=== PATIENT | male | born 1945 | race Caucasian/White ===

== ENCOUNTER 2019-01-12 19:13 | Inpatient (IN) | payer OTHER ==
--- NOTE | 2019-01-12 19:52 | PDOC ---
History of Present Illness - General Chief Complaint: Seizure Stated Complaint: SEIZURE Time Seen by Provider: 01/12/19 19:52 - History of Present Illness Initial Comments: 01/12/19 20:24 74 year old man with a history of DM, HTN, HLD with prior seizures of unkown etiology (not on AED) who presents unwitnessed seizure just prior to arrival. The patient was in the bathroom when his mother heard him in the bathroom crashing into objects. She does not know how long he had the seizure for. She repotrs he had mentioned to her that he was feeling unwell the past day and had some night sweats last night. The patient has had seizures in the past that he was admitted for at [facility]. She does not know the neurologist he was seen with and notes that the patient does not have seizure medications. She states that the etiology of the seizures were not found. Patient is lethargic appearing but arousable with limited contribution to history Mother: home: [phone] / cell: [phone] ROS - limited 2/2 lethargy denies chest pain, shortness of breath, abdominal pain, diarrhea, constipation + dysuria PE GENERAL: Awake and fully oriented, in no acute distress HEAD: No signs of trauma, normocephalic, atraumatic EYES: PERRLA, EOMI, sclera anicteric, conjunctiva clear ENT: oropharynx clear without exudates. Moist mucosa NECK: Normal ROM, supple LUNGS: No distress, speaks full sentences, clear to auscultation bilaterally HEART: Regular rate and rhythm, normal S1 and S2, no murmurs, rubs or gallops, peripheral pulses normal and equal bilaterally. ABDOMEN: Soft, nontender No guarding, no rebound. No masses EXTREMITIES : Normal inspection, Normal range of motion, no edema. No clubbing or cyanosis. NEUROLOGICAL: Cranial nerves II through XII grossly intact. Normal speech. no focal sensorimotor deficits SKIN: Warm, Dry, normal turgor, no rashes or lesions noted MDM DDX including but not limited to: r/o traumatic injury s/p seizure r/o brain mass r/o electrolyte vs tox ED Course: labs largely wnl signed out to resident Dr. Mike Ortega, PGY2 Emergency Medicine Past History - Past Medical History Allergies/Adverse Reactions: Allergies Allergy/AdvReac Type Severity Reaction Status Date / Time No Known Allergies Allergy Unverified 08/24/12 14:45 Home Medications: Ambulatory Orders Atorvastatin Calcium 1 tab PO HS 01/13/19 Cholecalciferol (Vitamin D3) [Vitamin D3] 2,500 unit PO DAILY 01/13/19 Clopidogrel Bisulfate [Clopidogrel] 75 mg PO DAILY 01/13/19 Finasteride 5 mg PO DAILY 01/13/19 Glipizide [Glipizide ER] 5 mg PO DAILY 01/13/19 Metformin HCl [Glucophage] 1,000 mg PO BID 01/13/19 Metoprolol Succinate 50 mg PO DAILY 01/13/19 Tamsulosin HCl 0.4 mg PO HS 01/13/19 Cephalexin [Keflex] 500 mg PO BID #6 capsule 01/16/19 Hydrochlorothiazide [Hctz -] 50 mg PO DAILY 01/16/19 Lisinopril 30 mg PO DAILY 01/16/19 levETIRAcetam [Keppra -] 500 mg PO BID #60 tablet 01/16/19 Diabetes: Yes HTN: Yes - Psycho Social/Smoking Cessation Hx Smoking History: Unknown if ever smoked Have you smoked in the past 12 months: No *Physical Exam - Vital Signs Last Vital Signs Temp Pulse Resp BP Pulse Ox 96.6 F L 92 H 17 127/68 98 01/12/19 19:19 01/12/19 19:19 01/12/19 19:19 01/12/19 19:19 01/12/19 19:19 ED Treatment Course - LABORATORY CBC & Chemistry Diagram: 01/14/19 06:10 01/15/19 05:45 Discharge - Discharge Information Problems reviewed: Yes Clinical Impression/Diagnosis: Loss of consciousness Condition: Improved Disposition: HOME - Follow up/Referral - Patient Discharge Instructions - Post Discharge Activity
--- NOTE | 2019-01-12 20:17 | PDOC ---
Attending Attestation - Resident Resident Name: Ladan Ortega - ED Attending Attestation I have performed the following: I have examined & evaluated the patient, The case was reviewed & discussed with the resident, I agree w/resident's findings & plan, Exceptions are as noted - HPI HPI: 01/12/19 20:17 74M DM, HTN, HLD, BIBEMS s/p unwitnessed seizure. Patient was in the bathroom when mother heard crashing coming from the bathroom. She found him in the bathtub. He has had one similar episode in the past th
[2019-01-12 21:22] LABS: BASO % 0.4 % (0-2.0); EOS % 0.1 % (0-4.5); HEMATOCRIT 41.9 % (35.4-49); HEMOGLOBIN 14.2 GM/dL (11.7-16.9); LYMPH % 3.4 % (8-40); MCH 30.7 pg (25.7-33.7); MCHC 33.8 g/dl (32.0-35.9); MEAN CELL VOLUME 90.9 fl (80-96); MEAN PLT VOLUME 8.5 fl (7.5-11.1); MONO % 2.6 % (3.8-10.2); NEUT % 93.5 % (42.8-82.8); PLATELET COUNT 269 K/MM3 (134-434); RBC 4.61 M/mm3 (4.00-5.60); RDW 13.4 % (11.9-15.9); WHITE BLOOD COUNT 15.9 K/mm3 (4.0-10.0)
[2019-01-12 21:49] LABS: ALBUMIN 3.8 g/dl (3.4-5.0); BILIRUBIN,TOTAL 0.5 mg/dL (0.2-1); BLOOD UREA NITROGEN 22.9 mg/dL (7-18); CALCIUM 9.8 mg/dL (8.5-10.1); CREATININE 1.4 mg/dL (0.55-1.3); TOT PROT 7.4 g/dl (6.4-8.2)
[2019-01-12 22:50] LABS: ANISOCYTOSIS 0; MACROCYTOSIS 0; PLATELET ESTIMATE NORMAL
--- NOTE | 2019-01-12 23:55 | PDOC ---
*Physical Exam - Vital Signs Last Vital Signs Temp Pulse Resp BP Pulse Ox 96.6 F L 76 14 134/67 95 01/12/19 19:19 01/12/19 20:44 01/12/19 20:44 01/12/19 20:44 01/12/19 20:44 ED Treatment Course - LABORATORY CBC & Chemistry Diagram: 01/14/19 06:10 01/14/19 06:10 - ADDITIONAL ORDERS Additional order review: Laboratory Results 01/12/19 01/12/19 01/12/19 21:00 21:00 21:00 Sodium 138 Potassium 4.0 Chloride 101 Carbon Dioxide 26 Anion Gap 11 BUN 22.9 H Creatinine 1.4 H Est GFR (CKD-EPI)AfAm 56.96 Est GFR (CKD-EPI)NonAf 49.14 POC Glucometer Random Glucose 156 H Lactic Acid 6.1 H* Calcium 9.8 Total Bilirubin 0.5 AST 13 L ALT 20 Alkaline Phosphatase 91 Troponin I < 0.02 Total Protein 7.4 Albumin 3.8 01/12/19 19:54 Sodium Potassium Chloride Carbon Dioxide Anion Gap BUN Creatinine Est GFR (CKD-EPI)AfAm Est GFR (CKD-EPI)NonAf POC Glucometer 180 Random Glucose Lactic Acid Calcium Total Bilirubin AST ALT Alkaline Phosphatase Troponin I Total Protein Albumin 01/12/19 01/12/19 21:00 19:54 RBC 4.61 MCV 90.9 MCHC 33.8 RDW 13.4 MPV 8.5 Neutrophils % 93.5 H Lymphocytes % 3.4 L Monocytes % 2.6 L Eosinophils % 0.1 Basophils % 0.4 POC Glucometer 180 Medical Decision Making - Medical Decision Making 01/12/19 23:54 rcvd sign out from noon team - UA - CT head results - admit 01/13/19 01:33 CT Head, Face, and Neck w/o acute pathology - UA sent Admitted to Telemetry Discharge - Discharge Information Problems reviewed: Yes Clinical Impression/Diagnosis: Loss of consciousness Condition: Fair - Admission Yes - Follow up/Referral - Patient Discharge Instructions - Post Discharge Activity
[2019-01-13] MEDS ORDERED: ACETAMINOPHEN 1000 MG/100 ML VIAL (NON FORMULARY) IVPB ONE (01:48)
[2019-01-13 01:50] LABS: EPI CELLS 8.9 /HPF (0-5/HPF); HYALINE CASTS 13 /lpf (0-8); URINE APPEARANCE CLEAR; URINE BACTERIA 2.9 /hpf (NEGATIVE); URINE BILIRUBIN NEGATIVE (NEGATIVE); URINE COLOR YELLOW; URINE GLUCOSE (UA) NEGATIVE (NEGATIVE); URINE KETONE TRACE (NEGATIVE); URINE LEUK ESTERASE 2+ (NEGATIVE); URINE NITRITE NEGATIVE (NEGATIVE); URINE PROTEIN 2+ (NEGATIVE); URINE RBC 3 /hpf (0-4); URINE UROBILINOGEN 0.2 mg/dL (0.2-1.0); URINE WBC 69 /hpf (0-5)
[2019-01-13] MEDS ORDERED: SODIUM CHLORIDE 0.9% 500 ML INFUS.BAG IV ONE (01:53)
[2019-01-13] MEDS ORDERED: CEFTRIAXONE 1,000 MG in DEXTROSE 5%-WATER - 50 ML IVPB ONE (01:54)
[2019-01-13] MEDS ORDERED: CEFTRIAXONE 1 GM/50 ML BAG ONE (02:07)
[2019-01-13] MEDS ORDERED: ACETAMINOPHEN INJECTION 100 ML IVPB ONE (02:07)
[2019-01-13 02:11] LABS: COCAINE, UR NEGATIVE ng/ml (CUTOFF=300); METHADONE, UR NEGATIVE ng/ml (CUTOFF=300); OPIATES, URI NEGATIVE ng/ml (CUTOFF=300); PHENCYCLIDINE,URINE NEGATIVE ng/ml (CUTOFF=25); URINE AMPHETAMINES NEGATIVE ng/ml (CUTOFF=500); URINE BARBITURATES NEGATIVE ng/ml (CUTOFF=200); URINE BENZODIAZEPINES NEGATIVE ng/ml (CUTOFF=200)
--- NOTE | 2019-01-13 04:19 | PN ---
Teaching Attending Note Name of Resident: Mae Ontiveros ATTENDING PHYSICIAN STATEMENT I saw and evaluated the patient. I reviewed the resident's note and discussed the case with the resident. I agree with the resident's findings and plan as documented. SUBJECTIVE: 74-year-old man with diabetes hypertension and dyslipidemia and with reported seizure history not taking any AEDs presented with an unwitnessed seizure just prior to arrival. Patient was in the bathroom when his mother heard him in the bathroom crashing into objects in the past admitted to [facility] for seizure disorder does not remember the name of neurologist he saw in the past. In the emergency department C-spine CT, head CT, facial bone CT were ordered. OBJECTIVE: Last Vital Signs Temp Pulse Resp BP Pulse Ox 96.6 F L 76 14 134/67 95 01/12/19 19:19 01/12/19 20:44 01/12/19 20:44 01/12/19 20:44 01/12/19 20:44 GENERAL: Well developed, well nourished. Awake and alert. No acute distress. HEENT: Normocephalic, atraumatic. PERRLA, EOMI. No conjunctival pallor. Sclera are non- icteric. Moist mucous membranes. Oropharynx is clear. NECK: Supple. Full ROM. No JVD. Carotid pulses 2+ and symmetric, without bruits. No thyromegaly. No lymphadenopathy. CARDIOVASCULAR: Regular rate and rhythm. No murmurs, rubs, or gallops. Distal pulses are 2+ and symmetric. PULMONARY: No evidence of respiratory distress. Lungs clear to auscultation bilaterally. No wheezing, rales or rhonchi. ABDOMINAL: Soft. Non-tender. Non-distended. No rebound or guarding. No organomegaly. Normoactive bowel sounds. MUSCULOSKELETAL Normal range of motion at all joints. No bony deformities or tenderness. No CVA tenderness. EXTREMITIES: Chronic venous stasis changes appreciated bilaterally, onychomycosis in both feet SKIN: Warm and dry. Normal capillary refill. No rashes. No jaundice. NEUROLOGICAL: No focal neurological deficits appreciated PSYCHIATRIC: Cooperative. Good eye contact. Appropriate mood and affect. Abnormal Lab Results 01/12/19 01/12/19 01/12/19 21:00 21:00 21:00 WBC 15.9 H Absolute Neuts (auto) 14.8 H Neutrophils % 93.5 H Neutrophils % (Manual) 95.0 H Lymphocytes % 3.4 L Lymphocytes % (Manual) 3.0 L Monocytes % 2.6 L Monocytes % (Manual) 2 L BUN 22.9 H Creatinine 1.4 H Random Glucose 156 H Lactic Acid 6.1 H* AST 13 L Urine Protein Urine Ketones Ur Leukocyte Esterase 01/13/19 01:25 WBC Absolute Neuts (auto) Neutrophils % Neutrophils % (Manual) Lymphocytes % Lymphocytes % (Manual) Monocytes % Monocytes % (Manual) BUN Creatinine Random Glucose Lactic Acid AST Urine Protein 2+ H Urine Ketones Trace H Ur Leukocyte Esterase 2+ H Imaging reviewed ASSESSMENT AND PLAN: Syncope versus seizure episode. High lactic acidosis which may be secondary to seizure episode. Leukocytosis may be reactive episode that is suspected. No identified source of infection. Admit to telemetry Bedrest fall precautions Loaded with Keppra 1 g IV Neurochecks every 4 hours Neurology consult IV fluid hydrations Repeat lactate Repeat CBC Observe off of antibiotics at this time Would follow-up with the imaging reports of various CT studies ordered by emergency department Urine toxicology #BASSAM versus CKD, no baseline IV fluid hydration and avoid nephrotoxins Repeat chemistry to assess for improvement DVT prophylaxis with heparin subcu
[2019-01-13] MEDS ORDERED: levETIRAcetam 500 MG/5 ML INJECTION VIAL IVPB ONE ×2 (04:38→05:06)
[2019-01-13] MEDS: SODIUM CHLORIDE 1,000 ML IV SCH (05:17)
--- NOTE | 2019-01-13 05:42 | HP ---
CHIEF COMPLAINT: PCP: none HISTORY OF PRESENT ILLNESS: Patient is a 74 year old male with past medical history of diabetes, high blood pressure, alcoholism and high cholesterol who presents to the ED because of unwitnessed fall. Patient states he was in the bathroom when he felt dizzy, he tried to grab the towel rack and fell. Patient denies a history of seizures and states he was never diagnosed with epilepsy. Although his mother states that he had been hospitalized for seizures of unknown etiology in the past. The patient reports a 3 week course of suprapubic tenderness with radiation to his bladder and dysuria without hematuria. He states for the past 3 days he has had multiple episodes of diarrhea and night sweats yesterday night. He denies palpitations, abnormal smell or taste, uncontrolled body movement, vision changes, fever, nausea or vomiting. Patient is a poor historian, was unable to give a coherent or appropriate response for his living arrangements and the current year. Per patient either his mother or his brought him to the ED. Per ED note, the contact information for this person is home: [phone] / cell: [phone] ER course was notable for: (1) UA with pyuria and 2+ leukesterase (2) CTH without acute pathology Recent Travel: denies PAST MEDICAL HISTORY: please check meds/ ask family member to confirm as patient is very poor historian: diabetes, high blood pressure, alcoholism and high cholesterol PAST SURGICAL HISTORY: denies or is unable to recall Social History: Smoking: denies Alcohol: used to drink 4-5 alcoholic beverages daily Drugs: denies Allergies No Known Allergies Allergy (Unverified 08/24/12 14:45) HOME MEDICATIONS: Home Medications Medication Instructions Recorded Hydrochlorothiazide 25 mg PO DAILY 11/04/12 Lisinopril 10 mg PO DAILY 11/04/12 Metformin HCl 500 mg PO BID 11/04/12 REVIEW OF SYSTEMS CONSTITUTIONAL: Absent: fever, chills, diaphoresis, generalized weakness, malaise, loss of appetite, weight change HEENT: Absent: rhinorrhea, nasal congestion, throat pain, throat swelling, difficulty swallowing, mouth swelling, ear pain, eye pain, visual changes CARDIOVASCULAR: Absent: chest pain, syncope, palpitations, irregular heart rate, lightheadedness , peripheral edema RESPIRATORY: Absent: cough, shortness of breath, dyspnea with exertion, orthopnea, wheezing, stridor, hemoptysis GASTROINTESTINAL: suprapubic abdominal pain Absent: abdominal distension, nausea, vomiting, diarrhea, constipation, melena , hematochezia GENITOURINARY: dysuria, frequency, Absent: urgency, hesitancy, hematuria, flank pain, genital pain MUSCULOSKELETAL: Absent: myalgia, arthralgia, joint swelling, back pain, neck pain SKIN: Absent: rash, itching, pallor HEMATOLOGIC/IMMUNOLOGIC: Absent: easy bleeding, easy bruising, lymphadenopathy, frequent infections ENDOCRINE: Absent: unexplained weight gain, unexplained weight loss, heat intolerance, cold intolerance NEUROLOGIC: Absent: headache, focal weakness or paresthesias, dizziness, unsteady gait, seizure, mental status changes, bladder or bowel incontinence PSYCHIATRIC: Absent: anxiety, depression, suicidal or homicidal ideation, hallucinations. PHYSICAL EXAMINATION Vital Signs - 24 hr 01/12/19 01/12/19 01/13/19 19:19 20:44 04:17 Temperature 96.6 F L 98.6 F Pulse Rate 92 H Pulse Rate [ 76 82 Left] Respiratory 17 14 17 Rate Blood Pressure 127/68 Blood Pressure 134/67 138/86 [Right Arm] O2 Sat by Pulse 98 95 97 Oximetry (%) 01/13/19 04:59 Temperature 97.6 F Pulse Rate Pulse Rate [ 68 Left] Respiratory 19 Rate Blood Pressure Blood Pressure 114/67 [Right Arm] O2 Sat by Pulse 96 Oximetry (%) GENERAL: Awake, alert, in no acute distress. Patient oriented to self and location, not oriented to date. [place] assessment performed, patient scored 14 ( was unable to complete the following: tracing letter/ number diagram, drawing cube, could only draw contour of clock not numbers or place hands at correct time, could not recall list of 5 words either immediately or after a period of time, could not repeat sentences read to him, named <11 words starting with letter F in 1min, could not relate watch and ruler (abstraction), could not recall year or day.) HEAD: Normal with no signs of trauma. EYES: Pupils pinpoint, equal, round and reactive to light, extraocular movements intact, sclera anicteric, conjunctiva clear. No lid lag. EARS, NOSE, THROAT: Ears normal, nares patent, oropharynx clear without exudates. Moist mucous membranes. NECK: Normal range of motion, supple without lymphadenopathy. LUNGS: Breath sounds equal, clear to auscultation bilaterally. No wheezes, and no crackles. No accessory muscle use. HEART: Regular rate and rhythm, normal S1 and S2 without murmur. ABDOMEN: Soft, obese, suprapubic tenderness, not distended, normoactive bowel sounds, no guarding, no rebound, no masses. MUSCULOSKELETAL: Normal range of motion at all joints. No bony deformities or tenderness. No CVA tenderness. UPPER EXTREMITIES: 2+ pulses, warm, well-perfused. No cyanosis. No clubbing. No peripheral edema. LOWER EXTREMITIES: 2+ pulses, warm, well-perfused. No calf tenderness. 1+ pitting edema with venous stasis changes. NEUROLOGICAL: Cranial nerves II-XII intact. PSYCHIATRIC: Cooperative. Appropriate mood and affect. SKIN: Warm, dry, normal turgor, venous stasis changes on bilateral lower extremities. Laboratory Results - last 24 hr 01/12/19 01/12/19 01/12/19 19:54 21:00 21:00 WBC 15.9 H RBC 4.61 Hgb 14.2 Hct 41.9 MCV 90.9 MCH 30.7 MCHC 33.8 RDW 13.4 Plt Count 269 MPV 8.5 Absolute Neuts (auto) 14.8 H Neutrophils % 93.5 H Neutrophils % (Manual) 95.0 H Band Neutrophils % 0.0 Lymphocytes % 3.4 L Lymphocytes % (Manual) 3.0 L Monocytes % 2.6 L Monocytes % (Manual) 2 L Eosinophils % 0.1 Eosinophils % (Manual) 0.0 Basophils % 0.4 Basophils % (Manual) 0.0 Myelocytes % (Man) 0 Promyelocytes % (Man) 0 Blast Cells % (Manual) 0 Nucleated RBC % 0 Metamyelocytes 0 Hypochromia 0 Platelet Estimate Normal Polychromasia 0 Poikilocytosis 0 Anisocytosis 0 Microcytosis 0 Macrocytosis 0 Sodium 138 Potassium 4.0 Chloride 101 Carbon Dioxide 26 Anion Gap 11 BUN 22.9 H Creatinine 1.4 H Est GFR (CKD-EPI)AfAm 56.96 Est GFR (CKD-EPI)NonAf 49.14 POC Glucometer 180 Random Glucose 156 H Lactic Acid Calcium 9.8 Total Bilirubin 0.5 AST 13 L ALT 20 Alkaline Phosphatase 91 Troponin I Total Protein 7.4 Albumin 3.8 Urine Color Urine Appearance Urine pH Ur Specific [place] Urine Protein Urine Glucose (UA) Urine Ketones Urine Blood Urine Nitrite Urine Bilirubin Urine Urobilinogen Ur Leukocyte Esterase Urine WBC (Auto) Urine RBC (Auto) Urine Casts (Auto) U Epithel Cells (Auto) U Sm Round Cell (Auto) Urine Bacteria (Auto) Opiates Screen Methadone Screen Barbiturate Screen Phencyclidine Screen Ur Amphetamines Screen MDMA (Ecstasy) Screen Benzodiazepines Screen Cocaine Screen U Marijuana (THC) Screen 01/12/19 01/12/19 01/13/19 21:00 21:00 01:25 WBC RBC Hgb Hct MCV MCH MCHC RDW Plt Count MPV Absolute Neuts (auto) Neutrophils % Neutrophils % (Manual) Band Neutrophils % Lymphocytes % Lymphocytes % (Manual) Monocytes % Monocytes % (Manual) Eosinophils % Eosinophils % (Manual) Basophils % Basophils % (Manual) Myelocytes % (Man) Promyelocytes % (Man) Blast Cells % (Manual) Nucleated RBC % Metamyelocytes Hypochromia Platelet Estimate Polychromasia Poikilocytosis Anisocytosis Microcytosis Macrocytosis Sodium Potassium Chloride Carbon Dioxide Anion Gap BUN Creatinine Est GFR (CKD-EPI)AfAm Est GFR (CKD-EPI)NonAf POC Glucometer Random Glucose Lactic Acid 6.1 H* Calcium Total Bilirubin AST ALT Alkaline Phosphatase Troponin I < 0.02 Total Protein Albumin Urine Color Yellow Urine Appearance Clear Urine pH 5.0 Ur Specific [place] 1.022 Urine Protein 2+ H Urine Glucose (UA) Negative Urine Ketones Trace H Urine Blood Negative Urine Nitrite Negative Urine Bilirubin Negative Urine Urobilinogen 0.2 Ur Leukocyte Esterase 2+ H Urine WBC (Auto) 69 Urine RBC (Auto) 3 Urine Casts (Auto) 13 U Epithel Cells (Auto) 8.9 U Sm Round Cell (Auto) none seen Urine Bacteria (Auto) 2.9 Opiates Screen Methadone Screen Barbiturate Screen Phencyclidine Screen Ur Amphetamines Screen MDMA (Ecstasy) Screen Benzodiazepines Screen Cocaine Screen U Marijuana (THC) Screen 01/13/19 01:25 WBC RBC Hgb Hct MCV MCH MCHC RDW Plt Count MPV Absolute Neuts (auto) Neutrophils % Neutrophils % (Manual) Band Neutrophils % Lymphocytes % Lymphocytes % (Manual) Monocytes % Monocytes % (Manual) Eosinophils % Eosinophils % (Manual) Basophils % Basophils % (Manual) Myelocytes % (Man) Promyelocytes % (Man) Blast Cells % (Manual) Nucleated RBC % Metamyelocytes Hypochromia Platelet Estimate Polychromasia Poikilocytosis Anisocytosis Microcytosis Macrocytosis Sodium Potassium Chloride Carbon Dioxide Anion Gap BUN Creatinine Est GFR (CKD-EPI)AfAm Est GFR (CKD-EPI)NonAf POC Glucometer Random Glucose Lactic Acid Calcium Total Bilirubin AST ALT Alkaline Phosphatase Troponin I Total Protein Albumin Urine Color Urine Appearance Urine pH Ur Specific [place] Urine Protein Urine Glucose (UA) Urine Ketones Urine Blood Urine Nitrite Urine Bilirubin Urine Urobilinogen Ur Leukocyte Esterase Urine WBC (Auto) Urine RBC (Auto) Urine Casts (Auto) U Epithel Cells (Auto) U Sm Round Cell (Auto) Urine Bacteria (Auto) Opiates Screen Negative Methadone Screen Negative Barbiturate Screen Negative Phencyclidine Screen Negative Ur Amphetamines Screen Negative MDMA (Ecstasy) Screen Negative Benzodiazepines Screen Negative Cocaine Screen Negative U Marijuana (THC) Screen Negative ASSESSMENT/PLAN: Patient is a 74 year old male with past medical history of diabetes, high blood pressure, alcoholism and high cholesterol who presents to the ED because of unwitnessed fall. #Fall- Syncope versus seizure episode. High lactic acidosis which may be secondary to seizure episode. CTH without acute pathology - Admit to telemetry - Bedrest fall and seizure precautions - Loaded with Keppra 1 g IV in ED, continue with maintenance dosing - Neurochecks every 4 hours - Neurology consult, appreciate recommendations - IV fluid hydration with NS@100cc/h - Repeat lactate - Repeat CBC - F/u urine toxicology #BASSAM versus CKD, no baseline # UTI- Leukocytosis, patient complaining of burining on urination and suprapubic tenderness, UA with pyuria. Rocephin started in ED - continue rocephin 1g daily - f/u urine cx. # BASSAM - IV fluid hydration and avoid nephrotoxins - Repeat chemistry to assess for improvement #FEN - IV NS@ 100 - replete PRN - Diet can be started once patient passes bedside swallow eval, also consider speech consult for swallow assessment given questionable mental status. #PPx DVT prophylaxis with heparin SQ Visit type - Emergency Visit Emergency Visit: Yes ED Registration Date: 01/13/19 Care time: The patient presented to the Emergency Department on the above date and was hospitalized for further evaluation of their emergent condition. - New Patient This patient is new to me today: Yes Date on this admission: 01/13/19 - Critical Care Critical Care patient: No ATTENDING PHYSICIAN STATEMENT I saw and evaluated the patient. I reviewed the resident's note and discussed the case with the resident. I agree with the resident's findings and plan as documented. SUBJECTIVE: OBJECTIVE: ASSESSMENT AND PLAN:
[2019-01-13 05:54] LABS: BASO % 0.7 % (0-2.0); EOS % 0.1 % (0-4.5); HEMATOCRIT 39.4 % (35.4-49); HEMOGLOBIN 13.4 GM/dL (11.7-16.9); MCH 30.4 pg (25.7-33.7); MCHC 34.1 g/dl (32.0-35.9); MEAN CELL VOLUME 89.1 fl (80-96); NEUT % 81.2 % (42.8-82.8); PLATELET COUNT 225 K/MM3 (134-434); RBC 4.42 M/mm3 (4.00-5.60); RDW 13.7 % (11.9-15.9); WHITE BLOOD COUNT 13.1 K/mm3 (4.0-10.0)
[2019-01-13 06:25] LABS: ALBUMIN 3.2 g/dl (3.4-5.0); BILIRUBIN,TOTAL 0.6 mg/dL (0.2-1); BLOOD UREA NITROGEN 22.6 mg/dL (7-18); MAGNESIUM 1.9 mg/dL (1.8-2.4); PHOSPHOROUS 2.7 mg/dL (2.5-4.9); POTASSIUM 3.7 mmol/L (3.5-5.1); TOT PROT 6.2 g/dl (6.4-8.2)
[2019-01-13] MEDS: HEPARIN NA (PORCINE) 5,000 UNITS/ML 1ML VIAL SQ SCH ×3 (06:44→22:24)
[2019-01-13 08:48] VITALS: BMI 39.2
[2019-01-13] MEDS ORDERED: DEXTROSE 5%-WATER - 50 ML IVPB ONE (09:42)
[2019-01-13] MEDS ORDERED: cefTRIAXone SODIUM 1 GM VIAL ONE (09:42)
[2019-01-13] MEDS: CEFTRIAXONE 1 GM in DEXTROSE 5%-WATER - 50 ML IVPB SCH (11:00)
[2019-01-13] MEDS: levETIRAcetam 500 MG/5 ML INJECTION VIAL IVPB SCH ×2 (11:01→22:25)
[2019-01-13] MEDS: INSULIN SLIDING SCALE (NOVOLOG) 1 VIAL SQ SCH ×3 (11:12→22:25)
--- NOTE | 2019-01-13 14:31 | EKG ---
Test Reason : Blood Pressure : / mmHG Vent. Rate : 093 BPM Atrial Rate : 093 BPM P-R Int : 286 ms QRS Dur : 106 ms QT Int : 368 ms P-R-T Axes : 079 -83 061 degrees QTc Int : 457 ms SINUS RHYTHM WITH 1ST DEGREE A-V BLOCK WITH PREMATURE ATRIAL COMPLEXES PULMONARY DISEASE PATTERN INCOMPLETE RIGHT BUNDLE BRANCH BLOCK LEFT ANTERIOR FASCICULAR BLOCK ABNORMAL ECG NO PREVIOUS ECGS AVAILABLE Confirmed by MARCELINO LE MD ([id number]) on 01/13/2019 2:31:31 PM Referred By: Confirmed By:MARCELINO LE MD
--- NOTE | 2019-01-13 16:23 | CONSULT ---
Consult - text type - Consultation Consultation Note: NEUROLOGY CONSULT GREATLY APPRECIATED: Events reviewed. Pt examined with his at bedside aiding in history. 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 PMHX: HTN, DM, prior ETOH/nicotine use On: HCTZ, lisinopril, metformin reports 2 episodes which she describes as "seizures." One was witnessed in which patient was sleeping on couch and fell off the couch to the floor. Was admitted to [facility] and found with UTI. With this admission, pt describes standing to urinate without prodrome and fell to ground with LOC. heard the commotion and found him "unconscious" lying face down in the bathtub, with his face against the wall. She reports he was unconscious for "over an hour" and did not attempt to yell his name or arouse him. Once he was more arousable in ED, he became somewhat agitated during care briefly, which since subsided. She stated a few days prior that Harshad reported he just "didn't feel well" and had wasn't eating much. Now on empiric AED treatment with leveteracitam 500 mg IVP Q12H and Rocephin for possible UTI. Review of systems sig for approximately 1-2 years of memory decline per . Pt. Notes nocturnal burning pains on plantar aspects of his feet. Head CT (reviewed): Mod diffuse cerebral atrophy with ex vacuo ventricular dilation. Calcified intracranial vessels. CT of cervical spine- Mod DJD without traumatic changes. CT of facial bone without fracture. Carotid duplex: Some intimal plaque without sig hemodynamic stenosis WBC= 15.6K B12= 345 pg%; alb= 2.3; UA WBC= 69. SONIA: Obese. Afebrile. Neck supple. Neg SLR. Mottled and weaping L/E. Wearing diaper. No evidence of head trauma. Unkempt. NEURO: Awake, alert, responsive. Ox Kiran, corrected to [facility]. Nov no March 15. . TRUMP. PRUMT. /3 recall at 3 min. + glabella CNII-CNXII: EOM's full without nystagmus. Full gomes. No facial. Motor: No drift or tremor. Strength normal. Decreased MITRA's. Reflexes normal in arms, reduced KJ's and absent AJ's. Plantars silent. Coordination: No FTN dystaxia. Sensation: No vibration up to shins. Romberg - Gait: Sl flexed, wide-based. Can walk on heels, toes. Impression: Moderate B/L Cerebral Dysfunction (OMS, likely chronic) most consistent with Alzheimer's disease (AD) Seizure vs. Syncope. Worsened by Toxic-Metabolic Encephalopathy (UTI). Diabetic and/or alcoholic Peripheral neuropathy with dysesthetic pain. Suggest: Continue antibiotics and hydration per ID Add thiamine 250 mg IVP Q8H x 3 days Check TSH and RPR Continue empiric leveteracitam 500 mg q12H for now. Check orthostatic BPs. Agree with MRI of brain (C-), EEG Thank you very much, Jack Jiang MD
--- NOTE | 2019-01-13 16:36 | ECHO ---
Name: BERRY HORNE Exam:Adult Echocardiogram Study Date: 01/13/2019 02:24 PM Age: 74 yrs Height: 69 in Weight: 265 lb BSA: 2.3 m2 MMode/2D Measurements & Calculations IVSd: 0.66 cm Ao root diam: 2.6 cm LVIDd: 5.1 cm LA dimension: 2.8 cm LVIDs: 3.3 cm LVPWd: 1.1 cm LVPWs: 1.1 cm EDV(Teich): 123.7 ml ESV(Teich): 43.8 ml Doppler Measurements & Calculations MV E max darron: 111.1 cm/sec Ao V2 max: 173.1 cm/sec MV A max darron: 81.4 cm/sec Ao max P.1 mmHg MV E/A: 1.4 MV dec time: 0.30 sec LV V1 max P.8 mmHg PA V2 max: 124.4 cm/sec LV V1 max: 109.1 cm/sec PA max P.4 mmHg Med Peak E' Darron: 7.8 cm/sec Med E/e': 14.3 Lat Peak E' Darron: 7.7 cm/sec Lat E/e': 14.5 Procedure The study was technically difficult with many images being suboptimal in quality. Left Ventricle Left ventricular systolic function is grossly normal. Ejection Fraction = 55-60%. The transmitral spe ctral Doppler flow pattern is normal for age. Right Ventricle The right ventricle is normal in size and function. Atria Normal left and right atrial size and function. Mitral Valve There is mild mitral annular calcification. There is no mitral valve stenosis. Tricuspid Valve The tricuspid valve is not well visualized, but is grossly normal. There is mild tricuspid regurgitat ion. Right ventricular systolic pressure is normal. Aortic Valve No hemodynamically significant valvular aortic stenosis. Pulmonic Valve The pulmonic valve is not well seen, but is grossly normal. Great Vessels The aortic root is normal size. Pericardium/Pleura There is no pericardial effusion. Interpretation Summary The study was technically difficult with many images being suboptimal in quality. Left ventricular systolic function is grossly normal. Ejection Fraction = 55-60%. The right ventricle is normal in size and function. There is mild mitral annular calcification. There is mild tricuspid regurgitation. There is no pericardial effusion. MD Linton *Reinaldo 01/13/2019 04:35 PM
--- NOTE | 2019-01-13 18:05 | PN ---
Teaching Attending Note Name of Resident: Francheska Crespo ATTENDING PHYSICIAN STATEMENT I saw and evaluated the patient. I reviewed the resident's note and discussed the case with the resident. I agree with the resident's findings and plan as documented. SUBJECTIVE: No fever or chills. No MUIR , no pain , he felt a little light headed before he had LOC . now no pain or MUIR . feels fine. has dysuria per he is still slightly confused OBJECTIVE: NAD awake, knows location and hhis address , month and date but not year, [place] snot know the president name CV: RRR Lungs: CATB Ext : erythema and scaly skin on lower shins. fungal infection among R foot digits. Neuro : horizontal nystagmus, no facail droop, EOMI, round equal pupils, reactive to light. tongue and uvula at mid line. sensation to light touch Nl. nose to finger nl. strength 5/5 in upper and lower extremities proximally and distally. 2+ knee jerk and biceps b/l ASSESSMENT AND PLAN: 74 y/o man with h/o HTN, seizures, UTI, DM, HLP, who presented after an episode of unwitnessed LOC. 1- LOC: likely had a seizure, with postictal state ( per EMS at presentation to ER ) , elevated lactate. other causes of syncope can't be r/o - Neuro exam is not focal - cont keppra - obtain MRI of the brain - treat UTI - Lyme , RPR pending - B12, folate nl - TSH pending - Thiamine started 2- H/o Dm : hold oral agents. cont SSI 3- UTI: cont ceftriaxone , urine cx not done yet. RN informed 4- H/o HTn, confirm and cont meds Heparin sq
--- NOTE | 2019-01-13 19:35 | PN ---
Physical Exam: SUBJECTIVE: Patient seen and examined in the morning. No acute events in the morning. Patient had no complaints of chest pain, shortness of breath, fever, abdominal pain, nausea, vomiting, diarrhea. OBJECTIVE: Vital Signs Period Temp Pulse Resp BP Sys/De Guzman Pulse Ox Last 24 Hr 97.5 F-98.6 F 65-82 14-20 111-155/52-86 95-97 GENERAL: The patient is AAOx2. Not aware of what year it is. Patient seemed confused at moments during exam. HEAD: Normal with no signs of trauma. EYES: PERRL, extraocular movements intact, sclera anicteric, conjunctiva clear. No ptosis. ENT: Ears normal, nares patent, oropharynx clear without exudates, moist mucous membranes. NECK: Trachea midline, full range of motion, supple. LUNGS: Breath sounds equal, clear to auscultation bilaterally, no wheezes, no crackles, no accessory muscle use. HEART: Regular rate and rhythm, S1, S2 without murmur, rub or gallop. ABDOMEN: Obese body habitus, soft, nontender, nondistended, normoactive bowel sounds, no guarding, no rebound, no hepatosplenomegaly, no masses. EXTREMITIES: 2+ pulses, warm, well-perfused, no edema. Erythematous, scaling rash on the lower calves b/l. NEUROLOGICAL: Cranial nerves II through XII grossly intact. Normal speech. Laboratory Results - last 24 hr 01/12/19 01/12/19 01/12/19 19:54 21:00 21:00 WBC 15.9 H RBC 4.61 Hgb 14.2 Hct 41.9 MCV 90.9 MCH 30.7 MCHC 33.8 RDW 13.4 Plt Count 269 MPV 8.5 Absolute Neuts (auto) 14.8 H Neutrophils % 93.5 H Neutrophils % (Manual) 95.0 H Band Neutrophils % 0.0 Lymphocytes % 3.4 L Lymphocytes % (Manual) 3.0 L Monocytes % 2.6 L Monocytes % (Manual) 2 L Eosinophils % 0.1 Eosinophils % (Manual) 0.0 Basophils % 0.4 Basophils % (Manual) 0.0 Myelocytes % (Man) 0 Promyelocytes % (Man) 0 Blast Cells % (Manual) 0 Nucleated RBC % 0 Metamyelocytes 0 Hypochromia 0 Platelet Estimate Normal Polychromasia 0 Poikilocytosis 0 Anisocytosis 0 Microcytosis 0 Macrocytosis 0 Sodium 138 Potassium 4.0 Chloride 101 Carbon Dioxide 26 Anion Gap 11 BUN 22.9 H Creatinine 1.4 H Est GFR (CKD-EPI)AfAm 56.96 Est GFR (CKD-EPI)NonAf 49.14 POC Glucometer 180 Random Glucose 156 H Lactic Acid Calcium 9.8 Phosphorus Magnesium Total Bilirubin 0.5 AST 13 L ALT 20 Alkaline Phosphatase 91 Ammonia Troponin I Total Protein 7.4 Albumin 3.8 Vitamin B12 Serum Folate Urine Color Urine Appearance Urine pH Ur Specific Center Urine Protein Urine Glucose (UA) Urine Ketones Urine Blood Urine Nitrite Urine Bilirubin Urine Urobilinogen Ur Leukocyte Esterase Urine WBC (Auto) Urine RBC (Auto) Urine Casts (Auto) U Epithel Cells (Auto) U Sm Round Cell (Auto) Urine Bacteria (Auto) Opiates Screen Methadone Screen Barbiturate Screen Phencyclidine Screen Ur Amphetamines Screen MDMA (Ecstasy) Screen Benzodiazepines Screen Cocaine Screen U Marijuana (THC) Screen Alcohol, Quantitative Blood Type Antibody Screen 01/12/19 01/12/19 01/13/19 21:00 21:00 01:25 WBC RBC Hgb Hct MCV MCH MCHC RDW Plt Count MPV Absolute Neuts (auto) Neutrophils % Neutrophils % (Manual) Band Neutrophils % Lymphocytes % Lymphocytes % (Manual) Monocytes % Monocytes % (Manual) Eosinophils % Eosinophils % (Manual) Basophils % Basophils % (Manual) Myelocytes % (Man) Promyelocytes % (Man) Blast Cells % (Manual) Nucleated RBC % Metamyelocytes Hypochromia Platelet Estimate Polychromasia Poikilocytosis Anisocytosis Microcytosis Macrocytosis Sodium Potassium Chloride Carbon Dioxide Anion Gap BUN Creatinine Est GFR (CKD-EPI)AfAm Est GFR (CKD-EPI)NonAf POC Glucometer Random Glucose Lactic Acid 6.1 H* Calcium Phosphorus Magnesium Total Bilirubin AST ALT Alkaline Phosphatase Ammonia Troponin I < 0.02 Total Protein Albumin Vitamin B12 Serum Folate Urine Color Yellow Urine Appearance Clear Urine pH 5.0 Ur Specific Center 1.022 Urine Protein 2+ H Urine Glucose (UA) Negative Urine Ketones Trace H Urine Blood Negative Urine Nitrite Negative Urine Bilirubin Negative Urine Urobilinogen 0.2 Ur Leukocyte Esterase 2+ H Urine WBC (Auto) 69 Urine RBC (Auto) 3 Urine Casts (Auto) 13 U Epithel Cells (Auto) 8.9 U Sm Round Cell (Auto) none seen Urine Bacteria (Auto) 2.9 Opiates Screen Methadone Screen Barbiturate Screen Phencyclidine Screen Ur Amphetamines Screen MDMA (Ecstasy) Screen Benzodiazepines Screen Cocaine Screen U Marijuana (THC) Screen Alcohol, Quantitative Blood Type Antibody Screen 01/13/19 01/13/19 01/13/19 01:25 05:40 05:40 WBC 13.1 H RBC 4.42 Hgb 13.4 Hct 39.4 MCV 89.1 MCH 30.4 MCHC 34.1 RDW 13.7 Plt Count 225 MPV 8.0 Absolute Neuts (auto) 10.7 H Neutrophils % 81.2 Neutrophils % (Manual) Band Neutrophils % Lymphocytes % 10.0 D Lymphocytes % (Manual) Monocytes % 8.0 D Monocytes % (Manual) Eosinophils % 0.1 Eosinophils % (Manual) Basophils % 0.7 Basophils % (Manual) Myelocytes % (Man) Promyelocytes % (Man) Blast Cells % (Manual) Nucleated RBC % 0 Metamyelocytes Hypochromia Platelet Estimate Polychromasia Poikilocytosis Anisocytosis Microcytosis Macrocytosis Sodium 141 Potassium 3.7 Chloride 105 Carbon Dioxide 27 Anion Gap 9 BUN 22.6 H Creatinine 1.0 Est GFR (CKD-EPI)AfAm 85.55 Est GFR (CKD-EPI)NonAf 73.82 POC Glucometer Random Glucose 105 Lactic Acid Calcium 9.0 Phosphorus 2.7 Magnesium 1.9 Total Bilirubin 0.6 AST 20 ALT 17 Alkaline Phosphatase 72 Ammonia Troponin I Total Protein 6.2 L Albumin 3.2 L Vitamin B12 Serum Folate Urine Color Urine Appearance Urine pH Ur Specific Center Urine Protein Urine Glucose (UA) Urine Ketones Urine Blood Urine Nitrite Urine Bilirubin Urine Urobilinogen Ur Leukocyte Esterase Urine WBC (Auto) Urine RBC (Auto) Urine Casts (Auto) U Epithel Cells (Auto) U Sm Round Cell (Auto) Urine Bacteria (Auto) Opiates Screen Negative Methadone Screen Negative Barbiturate Screen Negative Phencyclidine Screen Negative Ur Amphetamines Screen Negative MDMA (Ecstasy) Screen Negative Benzodiazepines Screen Negative Cocaine Screen Negative U Marijuana (THC) Screen Negative Alcohol, Quantitative Blood Type Antibody Screen 01/13/19 01/13/19 01/13/19 06:56 06:56 06:56 WBC RBC Hgb Hct MCV MCH MCHC RDW Plt Count MPV Absolute Neuts (auto) Neutrophils % Neutrophils % (Manual) Band Neutrophils % Lymphocytes % Lymphocytes % (Manual) Monocytes % Monocytes % (Manual) Eosinophils % Eosinophils % (Manual) Basophils % Basophils % (Manual) Myelocytes % (Man) Promyelocytes % (Man) Blast Cells % (Manual) Nucleated RBC % Metamyelocytes Hypochromia Platelet Estimate Polychromasia Poikilocytosis Anisocytosis Microcytosis Macrocytosis Sodium Potassium Chloride Carbon Dioxide Anion Gap BUN Creatinine Est GFR (CKD-EPI)AfAm Est GFR (CKD-EPI)NonAf POC Glucometer Random Glucose Lactic Acid 2.8 H* Calcium Phosphorus Magnesium Total Bilirubin AST ALT Alkaline Phosphatase Ammonia 18.20 Troponin I Total Protein Albumin Vitamin B12 Serum Folate Urine Color Urine Appearance Urine pH Ur Specific Center Urine Protein Urine Glucose (UA) Urine Ketones Urine Blood Urine Nitrite Urine Bilirubin Urine Urobilinogen Ur Leukocyte Esterase Urine WBC (Auto) Urine RBC (Auto) Urine Casts (Auto) U Epithel Cells (Auto) U Sm Round Cell (Auto) Urine Bacteria (Auto) Opiates Screen Methadone Screen Barbiturate Screen Phencyclidine Screen Ur Amphetamines Screen MDMA (Ecstasy) Screen Benzodiazepines Screen Cocaine Screen U Marijuana (THC) Screen Alcohol, Quantitative Blood Type B POSITIVE Antibody Screen Negative 01/13/19 01/13/19 01/13/19 06:56 08:27 11:10 WBC RBC Hgb Hct MCV MCH MCHC RDW Plt Count MPV Absolute Neuts (auto) Neutrophils % Neutrophils % (Manual) Band Neutrophils % Lymphocytes % Lymphocytes % (Manual) Monocytes % Monocytes % (Manual) Eosinophils % Eosinophils % (Manual) Basophils % Basophils % (Manual) Myelocytes % (Man) Promyelocytes % (Man) Blast Cells % (Manual) Nucleated RBC % Metamyelocytes Hypochromia Platelet Estimate Polychromasia Poikilocytosis Anisocytosis Microcytosis Macrocytosis Sodium Potassium Chloride Carbon Dioxide Anion Gap BUN Creatinine Est GFR (CKD-EPI)AfAm Est GFR (CKD-EPI)NonAf POC Glucometer 117 Random Glucose Lactic Acid Calcium Phosphorus Magnesium Total Bilirubin AST ALT Alkaline Phosphatase Ammonia Troponin I Total Protein Albumin Vitamin B12 345 Serum Folate 6 Urine Color Urine Appearance Urine pH Ur Specific Center Urine Protein Urine Glucose (UA) Urine Ketones Urine Blood Urine Nitrite Urine Bilirubin Urine Urobilinogen Ur Leukocyte Esterase Urine WBC (Auto) Urine RBC (Auto) Urine Casts (Auto) U Epithel Cells (Auto) U Sm Round Cell (Auto) Urine Bacteria (Auto) Opiates Screen Methadone Screen Barbiturate Screen Phencyclidine Screen Ur Amphetamines Screen MDMA (Ecstasy) Screen Benzodiazepines Screen Cocaine Screen U Marijuana (THC) Screen Alcohol, Quantitative < 3.0 Blood Type B POSITIVE Antibody Screen 01/13/19 17:16 WBC RBC Hgb Hct MCV MCH MCHC RDW Plt Count MPV Absolute Neuts (auto) Neutrophils % Neutrophils % (Manual) Band Neutrophils % Lymphocytes % Lymphocytes % (Manual) Monocytes % Monocytes % (Manual) Eosinophils % Eosinophils % (Manual) Basophils % Basophils % (Manual) Myelocytes % (Man) Promyelocytes % (Man) Blast Cells % (Manual) Nucleated RBC % Metamyelocytes Hypochromia Platelet Estimate Polychromasia Poikilocytosis Anisocytosis Microcytosis Macrocytosis Sodium Potassium Chloride Carbon Dioxide Anion Gap BUN Creatinine Est GFR (CKD-EPI)AfAm Est GFR (CKD-EPI)NonAf POC Glucometer 109 Random Glucose Lactic Acid Calcium Phosphorus Magnesium Total Bilirubin AST ALT Alkaline Phosphatase Ammonia Troponin I Total Protein Albumin Vitamin B12 Serum Folate Urine Color Urine Appearance Urine pH Ur Specific Center Urine Protein Urine Glucose (UA) Urine Ketones Urine Blood Urine Nitrite Urine Bilirubin Urine Urobilinogen Ur Leukocyte Esterase Urine WBC (Auto) Urine RBC (Auto) Urine Casts (Auto) U Epithel Cells (Auto) U Sm Round Cell (Auto) Urine Bacteria (Auto) Opiates Screen Methadone Screen Barbiturate Screen Phencyclidine Screen Ur Amphetamines Screen MDMA (Ecstasy) Screen Benzodiazepines Screen Cocaine Screen U Marijuana (THC) Screen Alcohol, Quantitative Blood Type Antibody Screen Active Medications Generic Name Dose Route Start Last Admin Trade Name Kentrellq PRN Reason Stop Dose Admin Heparin Sodium (Porcine) 5,000 unit 01/13/19 06:00 01/13/19 15:36 Heparin - SQ 5,000 unit TID CONCHITA Administration Sodium Chloride 1,000 mls @ 100 mls/hr 01/13/19 04:45 01/13/19 05:17 Normal Saline - IV 100 mls/hr ASDIR CONCHITA Administration Ceftriaxone Sodium 1 gm/ 50 mls @ 100 mls/hr 01/13/19 10:00 01/13/19 11:00 Dextrose IVPB 100 mls/hr DAILY CONCHITA Administration Protocol Insulin Aspart 1 vial 01/13/19 11:00 01/13/19 17:18 Novolog Vial Sliding Scale - SQ Not Given ACHS [facility] Protocol Levetiracetam 500 mg 01/13/19 10:00 01/13/19 11:01 Keppra Injection - IVPB 500 mg BID CONCHITA Administration Nystatin 1 applic 01/13/19 22:00 Mycostatin Cream - TP BID CONCHITA Thiamine HCl 200 mg 01/13/19 22:00 Vitamin B1 Injection - IVPB 01/16/19 21:59 TID [facility] ASSESSMENT/PLAN: 74 M PMH DM, HTN, HLD, alcoholism who presented to the ED with seizure event. 1) Seizure vs syncope -As per , patient had a similar seizure event in 2017. -Had UTI with first seizure event which was also last time it occurred, likely a toxic-metabolic encephalopathy. -Head CT negative -Keppra 500 mg BID -F/U Brain MRI -Echo was negative -On telemetry monitoring -Lactate trending down - 2.8 -Urine toxicology negative -Neurology consulted, appreciate neuro recs -F/U RPR and lyme serology 2) UTI -Leukocytosis- patient complaining of burning and urination. -Continue Ceftriaxone 1 gram daily IV -F/U Urine Culture 3)DM -Sliding scale insulin 4)BASSAM -IV fluid hydration @ NS 100 ml/hr F: NS @ 100 ml/hr E: Monitor CMP N: Diabetic diet DVT: Heparin 5000 unit SQ Dispo: Admitted to telemetry. Visit type - Emergency Visit Emergency Visit: Yes ED Registration Date: 01/13/19 Care time: The patient presented to the Emergency Department on the above date and was hospitalized for further evaluation of their emergent condition. - New Patient This patient is new to me today: Yes Date on this admission: 01/13/19 - Critical Care Critical Care patient: No ATTENDING PHYSICIAN STATEMENT I saw and evaluated the patient. I reviewed the resident's note and discussed the case with the resident. I agree with the resident's findings and plan as documented. SUBJECTIVE: OBJECTIVE: ASSESSMENT AND PLAN:
[2019-01-13] MEDS: NYSTATIN 100,000 UNIT/GM TOPICAL CREAM 15 GM TUBE TP SCH (22:25)
[2019-01-13] MEDS: THIAMINE HCL 200 MG/2 ML VIAL IVPB SCH (22:25)
[2019-01-14] MEDS: SODIUM CHLORIDE 1,000 ML IV SCH (06:47)
[2019-01-14] MEDS: THIAMINE HCL 200 MG/2 ML VIAL IVPB SCH ×3 (06:48→21:58)
[2019-01-14] MEDS: HEPARIN NA (PORCINE) 5,000 UNITS/ML 1ML VIAL SQ SCH ×3 (07:23→21:58)
[2019-01-14] MEDS: INSULIN SLIDING SCALE (NOVOLOG) 1 VIAL SQ SCH ×4 (08:10→22:05)
--- NOTE | 2019-01-14 09:37 | PN ---
Physical Exam: SUBJECTIVE: Patient seen this morning with no complaints. Overnight he retained and they had to put a bolden in, it caused him alot of discomfort so they took it out. Patient still needs to urinate but is refusing a bolden. OBJECTIVE: Vital Signs Period Temp Pulse Resp BP Sys/De Guzman Pulse Ox Last 24 Hr 98.1 F-98.4 F 72-79 17-20 111-128/44-53 98 GENERAL: The patient is awake, alert, HEAD: Normal with no signs of trauma. EYES: PERRL, extraocular movements intact, ENT: moist mucous membranes. NECK: Trachea midline, full range of motion, supple. LUNGS: Breath sounds equal, clear to auscultation bilaterally, no wheezes, no crackles, no accessory muscle use. HEART: Regular rate and rhythm, S1, S2 without murmur, rub or gallop. SKIN: Warm, dry, normal turgor, no rashes or lesions noted Laboratory Results - last 24 hr 01/13/19 01/13/19 01/13/19 06:56 11:10 17:16 POC Glucometer 117 109 Vitamin B12 345 Serum Folate 6 TSH Alcohol, Quantitative < 3.0 01/13/19 01/14/19 01/14/19 20:32 06:10 07:27 POC Glucometer 137 149 Vitamin B12 Serum Folate TSH 2.17 Alcohol, Quantitative Active Medications Atorvastatin Calcium (Lipitor -) 40 mg PO HS CONCHITA Clopidogrel Bisulfate (Plavix -) 75 mg PO DAILY [facility] Finasteride (Proscar -) 5 mg PO DAILY [facility] Heparin Sodium (Porcine) (Heparin -) 5,000 unit SQ TID [facility] Last Admin: 01/14/19 07:23 Dose: Not Given Hydrochlorothiazide (Hctz -) 50 mg PO DAILY [facility] Sodium Chloride (Normal Saline -) 1,000 mls @ 100 mls/hr IV ASDIR CONCHITA Last Admin: 01/14/19 06:47 Dose: 100 mls/hr Ceftriaxone Sodium 1 gm/ (Dextrose) 50 mls @ 100 mls/hr IVPB DAILY [facility]; Protocol Last Admin: 01/13/19 11:00 Dose: 100 mls/hr Insulin Aspart (Novolog Vial Sliding Scale -) 1 vial SQ ACHS [facility]; Protocol Last Admin: 01/14/19 08:10 Dose: Not Given Levetiracetam (Keppra Injection -) 500 mg IVPB BID [facility] Last Admin: 01/13/19 22:25 Dose: 500 mg Lisinopril (Prinivil) 30 mg PO DAILY [facility] Metoprolol Succinate (Toprol Xl -) 50 mg PO DAILY [facility] Nystatin (Mycostatin Cream -) 1 applic TP BID [facility] Last Admin: 01/13/19 22:25 Dose: 1 applic Tamsulosin HCl (Flomax -) 0.4 mg PO DAILY@0830 [facility] Thiamine HCl (Vitamin B1 Injection -) 200 mg IVPB TID [facility] Stop: 01/16/19 21:59 Last Admin: 01/14/19 06:48 Dose: 200 mg ASSESSMENT/PLAN: #seizure vs syncope - f/u brain MRI - evaluated by Neuro: continue Keppra and follow up imaging, suspicious for worsening alzheimers - urine tox negative - continue thiamine - f/u RPR and Lyme - vitamin B12 and folate within normal limits - Echo: 55-60% #UTI/ retention - UCX pending - continue Ceftriaxone ( day 2) - afebrile, WBC trending down - patient refusing catheter but place bolden as need - continue flomax and finasteride #BASSAM - continue to trend creatinine #HTN - continue metoprolol and lisinopril - continue HCTZ #CAD - continue clopidogrel - continue atorvastatin and aspirin #DM - BGM ACHS - continue SS DVT ppx - Heparin 5000 aq FEN - diabetic diet - NS @ 100 Dispo: monitor on tele Visit type - Emergency Visit Emergency Visit: Yes ED Registration Date: 01/13/19 Care time: The patient presented to the Emergency Department on the above date and was hospitalized for further evaluation of their emergent condition. - New Patient This patient is new to me today: Yes Date on this admission: 01/14/19 - Critical Care Critical Care patient: No ATTENDING PHYSICIAN STATEMENT I saw and evaluated the patient. I reviewed the resident's note and discussed the case with the resident. I agree with the resident's findings and plan as documented. SUBJECTIVE: OBJECTIVE: ASSESSMENT AND PLAN:
[2019-01-14 09:50] LABS: BASO % 0.8 % (0-2.0); EOS % 1.1 % (0-4.5); HEMATOCRIT 37.4 % (35.4-49); HEMOGLOBIN 12.5 GM/dL (11.7-16.9); LYMPH % 13.3 % (8-40); MCH 30.1 pg (25.7-33.7); MCHC 33.4 g/dl (32.0-35.9); MEAN CELL VOLUME 89.9 fl (80-96); MEAN PLT VOLUME 8.6 fl (7.5-11.1); MONO % 7.7 % (3.8-10.2); NEUT % 77.1 % (42.8-82.8); PLATELET COUNT 223 K/MM3 (134-434); RBC 4.16 M/mm3 (4.00-5.60); RDW 13.7 % (11.9-15.9); WHITE BLOOD COUNT 7.3 K/mm3 (4.0-10.0)
[2019-01-14] MEDS ORDERED: DEXTROSE 5%-WATER - 50 ML IVPB ONE (09:50)
[2019-01-14] MEDS ORDERED: cefTRIAXone SODIUM 1 GM VIAL ONE (09:50)
[2019-01-14] MEDS: CLOPIDOGREL BISULFATE 75 MG TABLET (FP) PO SCH (10:01)
[2019-01-14] MEDS: HYDROCHLOROTHIAZIDE 25 MG TABLET (FP) PO SCH (10:01)
[2019-01-14] MEDS: levETIRAcetam 500 MG/5 ML INJECTION VIAL IVPB SCH ×2 (10:01→21:58)
[2019-01-14] MEDS: TAMSULOSIN HCL 0.4 MG CAP PO SCH (10:01)
[2019-01-14] MEDS: LISINOPRIL 10 MG TABLET (FP) PO SCH (10:02)
[2019-01-14] MEDS: NYSTATIN 100,000 UNIT/GM TOPICAL CREAM 15 GM TUBE TP SCH ×2 (10:02→22:05)
[2019-01-14] MEDS: FINASTERIDE 5 MG TABLET (FP) PO SCH (10:03)
[2019-01-14] MEDS: CEFTRIAXONE 1 GM in DEXTROSE 5%-WATER - 50 ML IVPB SCH (10:03)
[2019-01-14 10:18] LABS: BLOOD UREA NITROGEN 15.3 mg/dL (7-18); CREATININE 0.9 mg/dL (0.55-1.3); MAGNESIUM 1.9 mg/dL (1.8-2.4); POTASSIUM 3.5 mmol/L (3.5-5.1)
[2019-01-14] MEDS ORDERED: NAPH,MB-DB/K PH,MBDB POWDER PACKET PO ONE (13:40)
--- NOTE | 2019-01-14 15:39 | PN ---
Teaching Attending Note Name of Resident: Francheska Crespo ATTENDING PHYSICIAN STATEMENT I saw and evaluated the patient. I reviewed the resident's note and discussed the case with the resident. I agree with the resident's findings and plan as documented. SUBJECTIVE: No fever or chills. No MUIR. He feels better. no events over night. OBJECTIVE: NAD awake, knows location ., month and date but not year, does not know the president name again today CV: RRR Lungs: CATB Ext: erythema and scaly skin on lower shins. Neuro : horizontal nystagmus, no facial droop, EOMI, round equal pupils, reactive to light. tongue and uvula at mid line. sensation to light touch Nl. nose to finger nl. strength 5/5 in upper and lower extremities proximally and distally. 2+ knee jerk and biceps b/l ASSESSMENT AND PLAN: 74 y/o man with h/o HTN, seizures, UTI, DM, HLP, who presented after an episode of unwitnessed LOC. 1- LOC: likely had a seizure, other causes of syncope can't be r/o. - Tele reviewed, no events. - MRI is still pending - cont keppra - treat UTI - Lyme pending , RPR non-reactive - TSH NL - cont Thiamine - cont IVF till tomorrow then stop 2- H/o DM: hold oral agents. cont SSI 3- UTI: cont ceftriaxone day 2 , urine cx pending ( taken after AB x administration ) 4- H/o HTN, cont lisinopril , hold HCTZ Heparin sq dispo : pending MRi and U cx results
[2019-01-14] MEDS: ATORVASTATIN CA 40 MG TABLET (FP) PO SCH (21:58)
[2019-01-15] MEDS: INSULIN SLIDING SCALE (NOVOLOG) 1 VIAL SQ SCH ×3 (06:42→16:46)
[2019-01-15] MEDS: HEPARIN NA (PORCINE) 5,000 UNITS/ML 1ML VIAL SQ SCH ×3 (06:44→21:46)
[2019-01-15] MEDS: THIAMINE HCL 200 MG/2 ML VIAL IVPB SCH ×3 (06:44→21:46)
[2019-01-15] MEDS: SODIUM CHLORIDE 1,000 ML IV SCH (06:45)
[2019-01-15 07:34] LABS: BLOOD UREA NITROGEN 11.1 mg/dL (7-18); CREATININE 0.7 mg/dL (0.55-1.3); POTASSIUM 4.1 mmol/L (3.5-5.1)
[2019-01-15] MEDS ORDERED: cefTRIAXone SODIUM 1 GM VIAL ONE (09:52)
[2019-01-15] MEDS ORDERED: DEXTROSE 5%-WATER - 50 ML IVPB ONE (09:52)
[2019-01-15] MEDS: CLOPIDOGREL BISULFATE 75 MG TABLET (FP) PO SCH (10:03)
[2019-01-15] MEDS: TAMSULOSIN HCL 0.4 MG CAP PO SCH (10:03)
[2019-01-15] MEDS: HYDROCHLOROTHIAZIDE 25 MG TABLET (FP) PO SCH (10:03)
[2019-01-15] MEDS: FINASTERIDE 5 MG TABLET (FP) PO SCH (10:03)
[2019-01-15] MEDS: levETIRAcetam 500 MG/5 ML INJECTION VIAL IVPB SCH ×2 (10:03→21:46)
[2019-01-15] MEDS: CEFTRIAXONE 1 GM in DEXTROSE 5%-WATER - 50 ML IVPB SCH (10:03)
[2019-01-15] MEDS: LISINOPRIL 10 MG TABLET (FP) PO SCH (10:04)
[2019-01-15] MEDS: NYSTATIN 100,000 UNIT/GM TOPICAL CREAM 15 GM TUBE TP SCH ×2 (10:04→21:46)
--- NOTE | 2019-01-15 14:31 | PN ---
Progress Note (short form) - Note Progress Note: Subjective: no fever or chills. No MUIR . no pain, no events over night Objective: Vital Signs: Last Vital Signs Temp Pulse Resp BP Pulse Ox 98.2 F 62 20 142/65 95 01/15/19 14:00 01/15/19 14:00 01/15/19 14:00 01/15/19 14:00 01/15/19 09:30 Laboratory Results - last 24 hr 01/14/19 01/14/19 01/15/19 16:52 22:01 05:45 Sodium 142 Potassium 4.1 Chloride 109 H Carbon Dioxide 26 Anion Gap 6 L BUN 11.1 Creatinine 0.7 Est GFR (CKD-EPI)AfAm 107.75 Est GFR (CKD-EPI)NonAf 92.97 POC Glucometer 110 122 Random Glucose 132 H Calcium 9.0 Phosphorus 3.0 01/15/19 01/15/19 05:45 11:17 Sodium Potassium Chloride Carbon Dioxide Anion Gap BUN Creatinine Est GFR (CKD-EPI)AfAm Est GFR (CKD-EPI)NonAf POC Glucometer 124 134 Random Glucose Calcium Phosphorus Physical Exam: NAD awake, alert and pleasant CV: RRR Lungs: CATB Ext: hyperpigmentation and scaly skin on lower shins. Neuro : horizontal nystagmus, no facial droop, EOMI, round equal pupils, reactive to light. tongue and uvula at mid line. ASSESSMENT AND PLAN: 74 y/o man with h/o HTN, seizures, UTI, DM, HLP, who presented after an episode of unwitnessed LOC. 1- LOC: likely had a seizure. No events on tele again today - MRI with no acute stroke or mass. chronic small vessel disease - cont keppra - Lyme pending , RPR non-reactive - cont Thiamine .last day tomorrow - DC IVF 2- H/o DM: hold oral agents. cont SSI 3- UTI: cont ceftriaxone day 3 , urine cx neg but was taken after Abx administration. will treat for 7 dats total 4- H/o HTN, cont lisinopril , and HCTZ Heparin sq dispo : dc tomorrow after he finishes IV Thiamine Visit type - Emergency Visit Emergency Visit: Yes ED Registration Date: 01/13/19 Care time: The patient presented to the Emergency Department on the above date and was hospitalized for further evaluation of their emergent condition. - New Patient This patient is new to me today: No - Critical Care Critical Care patient: No
[2019-01-15] MEDS: ATORVASTATIN CA 40 MG TABLET (FP) PO SCH (21:46)
[2019-01-16] MEDS: INSULIN SLIDING SCALE (NOVOLOG) 1 VIAL SQ SCH ×2 (06:53→11:24)
[2019-01-16] MEDS: HEPARIN NA (PORCINE) 5,000 UNITS/ML 1ML VIAL SQ SCH ×2 (06:56→13:10)
[2019-01-16] MEDS: THIAMINE HCL 200 MG/2 ML VIAL IVPB SCH ×2 (06:56→13:10)
[2019-01-16] MEDS ORDERED: DEXTROSE 5%-WATER - 50 ML IVPB ONE (08:01)
[2019-01-16] MEDS ORDERED: cefTRIAXone SODIUM 1 GM VIAL ONE (08:01)
[2019-01-16] MEDS: TAMSULOSIN HCL 0.4 MG CAP PO SCH (08:41)
[2019-01-16] MEDS: LISINOPRIL 10 MG TABLET (FP) PO SCH (09:13)
[2019-01-16] MEDS: HYDROCHLOROTHIAZIDE 25 MG TABLET (FP) PO SCH (09:13)
[2019-01-16] MEDS: CEFTRIAXONE 1 GM in DEXTROSE 5%-WATER - 50 ML IVPB SCH (09:14)
[2019-01-16] MEDS: levETIRAcetam 500 MG/5 ML INJECTION VIAL IVPB SCH (09:14)
[2019-01-16] MEDS: CLOPIDOGREL BISULFATE 75 MG TABLET (FP) PO SCH (09:15)
[2019-01-16] MEDS: NYSTATIN 100,000 UNIT/GM TOPICAL CREAM 15 GM TUBE TP SCH (09:15)
[2019-01-16] MEDS: FINASTERIDE 5 MG TABLET (FP) PO SCH (09:15)
--- NOTE | 2019-01-16 10:45 | PN ---
Teaching Attending Note Name of Resident: Francheska Crespo ATTENDING PHYSICIAN STATEMENT I saw and evaluated the patient. I reviewed the resident's note and discussed the case with the resident. I agree with the resident's findings and plan as documented. SUBJECTIVE: No fever or chills. no MUIR. No PAin , no SOB . No events over night. OBJECTIVE: NAD awake, alert and pleasant . Oriented x 3 today. knows president's name CV: RRR Lungs: CATB Ext: hyperpigmentation and scaly skin on lower shins. Neuro : horizontal nystagmus, no facial droop, EOMI, round equal pupils, reactive to light. tongue and uvula at mid line. strength 5/5 in upper and lower extremities proximally and distally. ASSESSMENT AND PLAN: 74 y/o man with h/o HTN, seizures, UTI, DM, HLP, who presented after an episode of unwitnessed LOC. 1- LOC: likely had a seizure. No events on tele. - cont keppra - Lyme is still pending, RPR non-reactive - cont Thiamine last day today. 2- H/o DM: hold oral agents. cont SSI. 3- UTI: cont ceftriaxone day 4, urine cx neg but was taken after Abx administration. will switch to keflex x 3 more days 4- H/o HTN, cont lisinopril , and HCTZ Heparin sq dispo : dc this afternoon after his Thiamine dose he declined the need for VNS
[2019-01-16 14:21] VITALS: BP 128/73; PULSE 56; TEMP 98.1
--- NOTE | 2019-01-16 17:01 | DS ---
Physical Exam: SUBJECTIVE: Patient seen and examined in the morning. No acute events overnight. Patient is still confused, thinks the year is 2000. No complaints of chest pain, abdominal pain, fever, cough, chills, shortness of breath. OBJECTIVE: Vital Signs Period Temp Pulse Resp BP Sys/De Guzman Pulse Ox Last 24 Hr 97.6 F-98.2 F 51-64 18-20 113-148/63-77 96-96 PHYSICAL EXAM GENERAL: The patient is AAOx2. Not aware of what year it is. Patient seemed confused at moments during exam. HEAD: Normal with no signs of trauma. EYES: PERRL, extraocular movements intact, sclera anicteric, conjunctiva clear. No ptosis. ENT: Ears normal, nares patent, oropharynx clear without exudates, moist mucous membranes. NECK: Trachea midline, full range of motion, supple. LUNGS: Breath sounds equal, clear to auscultation bilaterally, no wheezes, no crackles, no accessory muscle use. HEART: Regular rate and rhythm, S1, S2 without murmur, rub or gallop. ABDOMEN: Obese body habitus, soft, nontender, nondistended, normoactive bowel sounds, no guarding, no rebound, no hepatosplenomegaly, no masses. EXTREMITIES: 2+ pulses, warm, well-perfused, no edema. Erythematous, scaling rash on the lower calves b/l. NEUROLOGICAL: Cranial nerves II through XII grossly intact. Normal speech. LABS Laboratory Results - last 24 hr 01/13/19 01/15/19 01/16/19 15:50 20:52 05:29 POC Glucometer 143 137 Lyme Screen IgG & IgM <0.91 Lyme IgM 23 kDa Band No Result Required. Lyme IgM 39 kDa Band No Result Required. Lyme IgM 41 kDa Band No Result Required. 01/16/19 11:04 POC Glucometer 125 Lyme Screen IgG & IgM Lyme IgM 23 kDa Band Lyme IgM 39 kDa Band Lyme IgM 41 kDa Band HOSPITAL COURSE: Date of Admission:01/13/19 Date of Discharge: 01/16/19 74 M PMH DM, HTN, HLD, alcoholism who presented to the ED with seizure event. Patient was found to have lactic acid of 6.1 on admission which trended down after fluids were administered to 2.8. Initial Head CT did not show any signs of bleeds or masses. Brain MRI was normal. Echocardiogram was done to rule out cardiogenic syncope, which returned as normal. Patient was given 1000 mg of Keppra and continued on 500 mg IV BID. RPR was negative and lyme serology was negative. Patient was noted to have UTI and was treated with 3 days of Ceftriaxone and was discharged on 7 days of Keflex 500 mg BID. Patient will follow up with Neurology as outpatient. Imaging done this stay: Head CT: No evidence of acute intracranial hemorrhage, no CT evidence of acute territorial, acute transcortical infarct. Brain MRI: Generalized volume loss with multiple foci of a small vessel infarction in the periventricular white matter. There is no mass lesion acute infarction or hemorrhage. Carotid Doppler: Moderate size plaques at the common carotid bifurcation and bulb, bilaterally, right slightly larger than left without evidence of hemodynamically significant stenosis. A moderate size calcified plaque is present in the left mid common carotid artery. Echocardiogram: EF= 55-60% Right ventricle is normal in size and function Mild mitral annular calcification. Mild tricuspid regurgitation. Minutes to complete discharge: 35 Discharge Summary Problems reviewed: Yes Reason For Visit: URINARY TRACT INFECTION, LOSS OF CONSCIOUSNESS Condition: Improved - Instructions Diet, Activity, Other Instructions: You were admitted to the hospital because you lost consciousness and were confused. We believe you had a seizure. We did imaging of your brain which did not show any masses or bleeding. While you were here we also found that you had a Urinary Tract infection. You received antibiotics through your IV at the hospital and you will be finishing antibiotics by mouth at home. We started you on a medication to control seizures. Please continue to take the following: Levetiracetem 500 mg by mouth twice a day. We treated you with antibiotics while in the hospital. To complete treatment please take the following: Cephalexin 500 mg by mouth twice a day for 3 days. Please follow up with a neurologist within 1 week. A referral to Dr. Jiang will be included with this discharge. Please follow up with Dr. Gaviria within 1 week. Return to the Emergency Department if you have chest pain, headaches, worsening confusion, shortness of breath, nausea, vomiting or diarrhea. Referrals: Courtney Gaviria [Other] Jack Jiang MD [Staff Physician] - 1 Week Disposition: HOME - Home Medications Comprehensive Discharge Medication List: Ambulatory Orders Atorvastatin Calcium 1 tab PO HS 01/13/19 Cholecalciferol (Vitamin D3) [Vitamin D3] 2,500 unit PO DAILY 01/13/19 Clopidogrel Bisulfate [Clopidogrel] 75 mg PO DAILY 01/13/19 Finasteride 5 mg PO DAILY 01/13/19 Glipizide [Glipizide ER] 5 mg PO DAILY 01/13/19 Metformin HCl [Glucophage] 1,000 mg PO BID 01/13/19 Metoprolol Succinate 50 mg PO DAILY 01/13/19 Tamsulosin HCl 0.4 mg PO HS 01/13/19 Cephalexin [Keflex] 500 mg PO BID #6 capsule 01/16/19 Hydrochlorothiazide [Hctz -] 50 mg PO DAILY 01/16/19 Lisinopril 30 mg PO DAILY 01/16/19 levETIRAcetam [Keppra -] 500 mg PO BID #60 tablet 01/16/19 This patient is new to me today: No Emergency Visit: Yes ED Registration Date: 01/13/19 Care time: The patient presented to the Emergency Department on the above date and was hospitalized for further evaluation of their emergent condition. Critical Care patient: No - Discharge Referral Referred to [facility] No ATTENDING PHYSICIAN STATEMENT I saw and evaluated the patient. I reviewed the resident's note and discussed the case with the resident. I agree with the resident's findings and plan as documented. SUBJECTIVE: OBJECTIVE: ASSESSMENT AND PLAN:
== END 2019-01-16 14:15 | disposition home or self-care (01) | DRG 100 ==
LOC: JER 19:13 → JERBED 01-13 03:37 → J4W 01-13 06:16
PROVIDERS: ADMIT Internal Medicine; ATTEND Internal Medicine
DX: R56.9 Unspecified convulsions (principal); G93.41 Metabolic encephalopathy; N17.9 Acute kidney failure, unspecified; E87.2 Acidosis; N39.0 Urinary tract infection, site not specified; E11.9 Type 2 diabetes mellitus without complications; I10 Essential (primary) hypertension; E78.5 Hyperlipidemia, unspecified; R55 Syncope and collapse; D72.829 Elevated white blood cell count, unspecified; G30.9 Alzheimer's disease, unspecified; R33.9 Retention of urine, unspecified; I25.10 Atherosclerotic heart disease of native coronary artery without angina pectoris
CPT/HCPCS: 36415; 70450-TC; 70486-TC; 70551-TC; 71045-TC-FY; 72125-TC; 80048; 80053; 80307; 81003; 82140; 82607; 82746; 82962; 83605; 83735; 84100; 84443; 84484; 85025; 86593; 86618; 86850; 86900; 86901; 87086; 93005; 93010; 93306-TC; 93880-TC; 97116-GP; 97161-GP; 99285-25; J0131; J1644; J7030

== ENCOUNTER 2020-01-24 08:44 | Inpatient (IN) | payer BC, OTHER ==
[2020-01-24] MEDS ORDERED: ACETAMINOPHEN INJECTION 100 ML IVPB ONE (09:10)
[2020-01-24] MEDS ORDERED: DIPHTH,PERTUSS(ACELL),TET 0.5 ML DISP.SYRIN IM ONE ×2 (09:11→17:30)
[2020-01-24] MEDS ORDERED: ACETAMINOPHEN 1000 MG/100 ML VIAL (NON FORMULARY) IVPB ONE (09:30)
[2020-01-24 09:47] LABS: VENOUS BASE EXCESS -1.3 mmol/L (-2-2); VENOUS O2 SATURATION 86.8 % (70-80); VENOUS PH 7.432 (7.310-7.410)
[2020-01-24 09:50] LABS: BASO % 0.5 % (0-2.0); HEMATOCRIT 43.2 % (35.4-49); HEMOGLOBIN 14.1 GM/dL (11.7-16.9); LYMPH % 4.7 % (8-40); MCHC 32.6 g/dl (32.0-35.9); MEAN CELL VOLUME 88.9 fl (80-96); MEAN PLT VOLUME 8.7 fl (7.5-11.1); MONO % 6.4 % (3.8-10.2); NEUT % 88.4 % (42.8-82.8); PLATELET COUNT 299 K/MM3 (134-434); RBC 4.86 M/mm3 (4.00-5.60); RDW 14.1 % (11.9-15.9); WHITE BLOOD COUNT 16.4 K/mm3 (4.0-10.0)
[2020-01-24 09:56] LABS: INR 1.04 (0.83-1.09); PROTHROMBIN TIME (PATIENT) 12.8 SEC (9.7-13.0)
[2020-01-24 10:20] LABS: CHLORIDE 107 mmol/L (98-107); POTASSIUM 4.4 mmol/L (3.5-5.1); SODIUM 139 mmol/L (136-145)
[2020-01-24 10:22] LABS: ALBUMIN 3.2 g/dl (3.4-5.0); ANION GAP 8 MMOL/L (8-16); CALCIUM 9.4 mg/dL (8.5-10.1); CO2 24 mmol/L (21-32)
[2020-01-24 10:23] LABS: GLUCOSE,RANDOM 218 mg/dL (74-106)
[2020-01-24 10:25] LABS: SGOT/AST 112 U/L (15-37); SGPT/ALT 29 U/L (13-61)
[2020-01-24 10:27] LABS: BILIRUBIN,TOTAL 1.4 mg/dL (0.2-1); TOT PROT 6.7 g/dl (6.4-8.2)
[2020-01-24 10:28] LABS: ALK PHOS 91 U/L (45-117)
[2020-01-24 10:29] LABS: EPI CELLS 11 /uL (0-25.1); HYALINE CASTS 1 /uL (0-3.1); PH,URINE 5.5 (5.0-8.0); URINE APPEARANCE CLOUDY; URINE BACTERIA 5 /uL (0-1359); URINE BILIRUBIN NEGATIVE (NEGATIVE); URINE COLOR YELLOW; URINE GLUCOSE (UA) 1+ (NEGATIVE); URINE KETONE 1+ (NEGATIVE); URINE LEUK ESTERASE NEGATIVE (NEGATIVE); URINE NITRITE NEGATIVE (NEGATIVE); URINE PROTEIN 3+ (NEGATIVE); URINE RBC 16 /uL (0-23.9); URINE WBC 12 /uL (0-25.8)
[2020-01-24] MEDS ORDERED: AZITHROMYCIN 250 MG TABLET PO ONE (14:48)
[2020-01-24] MEDS ORDERED: CEFTRIAXONE 1,000 MG in DEXTROSE 5%-WATER - 50 ML IVPB ONE (14:48)
[2020-01-24] MEDS ORDERED: CEFTRIAXONE 1 GM/50 ML BAG ONE (15:18)
[2020-01-24] MEDS ORDERED: AZITHROMYCIN IVPB 500 MG/250 ML BAG IVPB ONE (15:19)
[2020-01-24] MEDS ORDERED: AZITHROMYCIN 250 MG TABLET ONE (15:36)
[2020-01-24] MEDS ORDERED: ACETAMINOPHEN 325 MG TABLET (FP) PO PRN (17:01)
[2020-01-24] MEDS: VANCOMYCIN 1 GM in D5W (PRE-DOCKED) 1,000 MG/250 ML IVPB SCH (17:23)
[2020-01-24] MEDS: LACTATED RINGERS SOLUTION 1,000 ML IV SCH (17:30)
[2020-01-24] MEDS ORDERED: VANCOMYCIN 1 GM in D5W (PRE-DOCKED) 1,000 MG/250 ML IVPB SCH ×2 (17:45→18:45)
[2020-01-25] MEDS ORDERED: PIPERACILLIN/TAZOB 3.375 GM 3.375 GM in DEXTROSE 5%-WATER - 50 ML IVPB SCH (02:00)
[2020-01-25] MEDS: INSULIN SLIDING SCALE (NOVOLOG) 1 VIAL SQ SCH ×5 (02:00→21:20)
[2020-01-25] MEDS: ATORVASTATIN CA 40 MG TABLET (FP) PO SCH ×2 (02:01→21:16)
[2020-01-25] MEDS: levETIRAcetam 250 MG TABLET PO SCH ×3 (02:01→21:16)
[2020-01-25] MEDS ORDERED: PIPERACILLIN/TAZOBACTAM 3.375 GM VIAL IVPB ONE ×3 (02:45→17:20)
[2020-01-25] MEDS ORDERED: DEXTROSE 5%-WATER - 50 ML IVPB ONE ×3 (02:46→17:20)
[2020-01-25] MEDS: PIPERACILLIN/TAZOB 3.375 GM 3.375 GM in DEXTROSE 5%-WATER - 50 ML IVPB SCH ×3 (02:57→18:33)
[2020-01-25 05:05] VITALS: BMI 38.7
[2020-01-25 07:55] LABS: BASO % 0.9 % (0-2.0); EOS % 0.6 % (0-4.5); HEMATOCRIT 38.1 % (35.4-49); HEMOGLOBIN 12.4 GM/dL (11.7-16.9); LYMPH % 10.1 % (8-40); MCH 28.9 pg (25.7-33.7); MCHC 32.5 g/dl (32.0-35.9); MEAN CELL VOLUME 88.8 fl (80-96); MEAN PLT VOLUME 8.5 fl (7.5-11.1); MONO % 9.3 % (3.8-10.2); NEUT % 79.1 % (42.8-82.8); PLATELET COUNT 261 K/MM3 (134-434); RBC 4.29 M/mm3 (4.00-5.60); RDW 14.2 % (11.9-15.9); WHITE BLOOD COUNT 11.8 K/mm3 (4.0-10.0)
[2020-01-25 08:17] LABS: POTASSIUM 3.8 mmol/L (3.5-5.1)
[2020-01-25 08:21] LABS: CALCIUM 9.1 mg/dL (8.5-10.1)
[2020-01-25 08:22] LABS: ALBUMIN 2.6 g/dl (3.4-5.0); BLOOD UREA NITROGEN 12.6 mg/dL (7-18); MAGNESIUM 2.3 mg/dL (1.8-2.4)
[2020-01-25 08:24] LABS: CREATININE 0.9 mg/dL (0.55-1.3)
[2020-01-25 08:25] LABS: PHOSPHOROUS 2.5 mg/dL (2.5-4.9)
[2020-01-25 08:26] LABS: BILIRUBIN,TOTAL 1.2 mg/dL (0.2-1); TOT PROT 5.6 g/dl (6.4-8.2)
[2020-01-25] MEDS ORDERED: VANCOMYCIN 1 GM in D5W (PRE-DOCKED) 1,000 MG/250 ML IVPB SCH (10:00)
[2020-01-25] MEDS: ENOXAPARIN NA (PORCINE) 40 MG/0.4 ML DISP.SYRIN SQ SCH (10:37)
[2020-01-25] MEDS: CLOPIDOGREL BISULFATE 75 MG TABLET (FP) PO SCH (10:38)
[2020-01-25] MEDS: TAMSULOSIN HCL 0.4 MG CAP PO SCH (10:38)
[2020-01-25] MEDS: CHOLECALCIFEROL (VIT D3) 1,000 UNIT (25 MCG) TABLET PO SCH (10:39)
[2020-01-25] MEDS: AMINO ACIDS/PROTEIN HYDROLYS 30 ML LIQUID.PKT PO SCH (17:28)
[2020-01-25] MEDS: VANCOMYCIN 1 GM in D5W (PRE-DOCKED) 1,000 MG/250 ML IVPB SCH (18:32)
[2020-01-25] MEDS: LACTATED RINGERS SOLUTION 1,000 ML IV SCH (18:33)
[2020-01-25] MEDS ORDERED: INSULIN (NOVOLOG) ASPART 100 UNITS/ML 10ML VIAL ONE (21:40)
[2020-01-25] MEDS: LISINOPRIL 10 MG TABLET PO SCH (22:12)
[2020-01-25] MEDS: BACITRACIN 15 GM TUBE TOPICAL OINTMENT TP SCH (22:20)
[2020-01-26] MEDS ORDERED: PIPERACILLIN/TAZOBACTAM 3.375 GM VIAL IVPB ONE ×3 (01:37→17:04)
[2020-01-26] MEDS: PIPERACILLIN/TAZOB 3.375 GM 3.375 GM in DEXTROSE 5%-WATER - 50 ML IVPB SCH ×3 (01:49→17:21)
[2020-01-26] MEDS: INSULIN SLIDING SCALE (NOVOLOG) 1 VIAL SQ SCH ×4 (06:13→21:09)
[2020-01-26] MEDS: AMINO ACIDS/PROTEIN HYDROLYS 30 ML LIQUID.PKT PO SCH ×2 (07:52→17:21)
[2020-01-26] MEDS: TAMSULOSIN HCL 0.4 MG CAP PO SCH (07:52)
[2020-01-26 09:14] LABS: HEMATOCRIT 38.5 % (35.4-49); HEMOGLOBIN 12.6 GM/dL (11.7-16.9); MCH 29.5 pg (25.7-33.7); MCHC 32.9 g/dl (32.0-35.9); MEAN CELL VOLUME 89.7 fl (80-96); MEAN PLT VOLUME 8.5 fl (7.5-11.1); PLATELET COUNT 245 K/MM3 (134-434); RBC 4.29 M/mm3 (4.00-5.60); RDW 14.2 % (11.9-15.9); WHITE BLOOD COUNT 9.3 K/mm3 (4.0-10.0)
[2020-01-26 09:20] LABS: POTASSIUM 3.9 mmol/L (3.5-5.1)
[2020-01-26 09:22] LABS: CALCIUM 8.9 mg/dL (8.5-10.1)
[2020-01-26 09:23] LABS: BLOOD UREA NITROGEN 13.5 mg/dL (7-18)
[2020-01-26 09:26] LABS: CREATININE 0.9 mg/dL (0.55-1.3)
[2020-01-26] MEDS ORDERED: DEXTROSE 5%-WATER - 50 ML IVPB ONE ×2 (09:42→17:05)
[2020-01-26] MEDS: LISINOPRIL 10 MG TABLET PO SCH (09:50)
[2020-01-26] MEDS: CHOLECALCIFEROL (VIT D3) 1,000 UNIT (25 MCG) TABLET PO SCH (09:53)
[2020-01-26] MEDS: levETIRAcetam 250 MG TABLET PO SCH ×2 (09:53→21:09)
[2020-01-26] MEDS: MULTIVITAMINS (DAILY MVI) TABLET (FP) PO SCH (09:54)
[2020-01-26] MEDS: CLOPIDOGREL BISULFATE 75 MG TABLET (FP) PO SCH (09:54)
[2020-01-26] MEDS: ENOXAPARIN NA (PORCINE) 40 MG/0.4 ML DISP.SYRIN SQ SCH (09:54)
[2020-01-26] MEDS: FINASTERIDE 5 MG TABLET (FP) PO SCH (09:54)
[2020-01-26] MEDS ORDERED: BACITRACIN 15 GM TUBE TOPICAL OINTMENT TP SCH (10:00)
[2020-01-26] MEDS: NYSTATIN POWDER 100,000 UNITS/GM - 15 GM TOPICAL POWDER TP SCH (12:21)
[2020-01-26] MEDS: BACITRACIN 15 GM TUBE TOPICAL OINTMENT TP SCH ×2 (12:21→21:08)
[2020-01-26] MEDS: LACTATED RINGERS SOLUTION 1,000 ML IV SCH (17:21)
[2020-01-26] MEDS: ATORVASTATIN CA 40 MG TABLET (FP) PO SCH (21:09)
[2020-01-27] MEDS ORDERED: PIPERACILLIN/TAZOBACTAM 3.375 GM VIAL IVPB ONE ×3 (01:46→17:33)
[2020-01-27] MEDS ORDERED: DEXTROSE 5%-WATER - 50 ML IVPB ONE ×3 (01:46→17:33)
[2020-01-27] MEDS: PIPERACILLIN/TAZOB 3.375 GM 3.375 GM in DEXTROSE 5%-WATER - 50 ML IVPB SCH ×3 (02:00→17:39)
[2020-01-27] MEDS: INSULIN SLIDING SCALE (NOVOLOG) 1 VIAL SQ SCH ×4 (06:52→22:25)
[2020-01-27 09:11] LABS: HEMATOCRIT 37.6 % (35.4-49); HEMOGLOBIN 12.3 GM/dL (11.7-16.9); MCHC 32.6 g/dl (32.0-35.9); MEAN PLT VOLUME 8.7 fl (7.5-11.1); PLATELET COUNT 248 K/MM3 (134-434); RBC 4.23 M/mm3 (4.00-5.60); WHITE BLOOD COUNT 8.1 K/mm3 (4.0-10.0)
[2020-01-27] MEDS: TAMSULOSIN HCL 0.4 MG CAP PO SCH (09:24)
[2020-01-27] MEDS: CHOLECALCIFEROL (VIT D3) 1,000 UNIT (25 MCG) TABLET PO SCH (09:24)
[2020-01-27] MEDS: FINASTERIDE 5 MG TABLET (FP) PO SCH (09:25)
[2020-01-27] MEDS: MULTIVITAMINS (DAILY MVI) TABLET (FP) PO SCH (09:25)
[2020-01-27] MEDS: levETIRAcetam 250 MG TABLET PO SCH ×2 (09:25→22:28)
[2020-01-27] MEDS: CLOPIDOGREL BISULFATE 75 MG TABLET (FP) PO SCH (09:26)
[2020-01-27] MEDS: LISINOPRIL 10 MG TABLET PO SCH (09:26)
[2020-01-27] MEDS: NYSTATIN POWDER 100,000 UNITS/GM - 15 GM TOPICAL POWDER TP SCH (09:28)
[2020-01-27] MEDS: BACITRACIN 15 GM TUBE TOPICAL OINTMENT TP SCH ×2 (09:29→22:28)
[2020-01-27] MEDS: AMINO ACIDS/PROTEIN HYDROLYS 30 ML LIQUID.PKT PO SCH ×2 (09:29→17:40)
[2020-01-27] MEDS: ENOXAPARIN NA (PORCINE) 40 MG/0.4 ML DISP.SYRIN SQ SCH (09:29)
[2020-01-27 09:47] LABS: POTASSIUM 3.9 mmol/L (3.5-5.1)
[2020-01-27 09:52] LABS: BLOOD UREA NITROGEN 12.5 mg/dL (7-18)
[2020-01-27 09:55] LABS: CREATININE 0.8 mg/dL (0.55-1.3)
[2020-01-27] MEDS ORDERED: INSULIN (NOVOLOG) ASPART 100 UNITS/ML 10ML VIAL ONE ×3 (11:24→22:21)
[2020-01-27] MEDS: ATORVASTATIN CA 40 MG TABLET (FP) PO SCH (22:28)
[2020-01-28] MEDS ORDERED: DEXTROSE 5%-WATER - 50 ML IVPB ONE ×3 (02:12→16:47)
[2020-01-28] MEDS ORDERED: PIPERACILLIN/TAZOBACTAM 3.375 GM VIAL IVPB ONE ×3 (02:12→16:47)
[2020-01-28] MEDS: PIPERACILLIN/TAZOB 3.375 GM 3.375 GM in DEXTROSE 5%-WATER - 50 ML IVPB SCH ×3 (02:29→17:02)
[2020-01-28] MEDS: MULTIVITAMINS (DAILY MVI) TABLET (FP) PO SCH (09:42)
[2020-01-28] MEDS: levETIRAcetam 250 MG TABLET PO SCH ×2 (09:43→21:43)
[2020-01-28] MEDS: ENOXAPARIN NA (PORCINE) 40 MG/0.4 ML DISP.SYRIN SQ SCH (09:43)
[2020-01-28] MEDS: CHOLECALCIFEROL (VIT D3) 1,000 UNIT (25 MCG) TABLET PO SCH (09:44)
[2020-01-28] MEDS: LISINOPRIL 10 MG TABLET PO SCH (09:44)
[2020-01-28] MEDS: FINASTERIDE 5 MG TABLET (FP) PO SCH (09:44)
[2020-01-28] MEDS: NYSTATIN POWDER 100,000 UNITS/GM - 15 GM TOPICAL POWDER TP SCH (09:44)
[2020-01-28] MEDS: BACITRACIN 15 GM TUBE TOPICAL OINTMENT TP SCH ×2 (09:44→21:43)
[2020-01-28] MEDS: TAMSULOSIN HCL 0.4 MG CAP PO SCH (09:44)
[2020-01-28] MEDS: CLOPIDOGREL BISULFATE 75 MG TABLET (FP) PO SCH (09:44)
[2020-01-28] MEDS: AMINO ACIDS/PROTEIN HYDROLYS 30 ML LIQUID.PKT PO SCH ×2 (09:45→16:53)
[2020-01-28] MEDS: INSULIN SLIDING SCALE (NOVOLOG) 1 VIAL SQ SCH ×3 (12:00→21:49)
[2020-01-28] MEDS ORDERED: LISINOPRIL 10 MG TABLET PO ONE (15:35)
[2020-01-28] MEDS: ATORVASTATIN CA 40 MG TABLET (FP) PO SCH (21:44)
[2020-01-29] MEDS ORDERED: DEXTROSE 5%-WATER - 50 ML IVPB ONE ×3 (01:20→16:31)
[2020-01-29] MEDS ORDERED: PIPERACILLIN/TAZOBACTAM 3.375 GM VIAL IVPB ONE ×3 (01:20→16:31)
[2020-01-29] MEDS: PIPERACILLIN/TAZOB 3.375 GM 3.375 GM in DEXTROSE 5%-WATER - 50 ML IVPB SCH ×3 (01:25→17:10)
[2020-01-29] MEDS: INSULIN SLIDING SCALE (NOVOLOG) 1 VIAL SQ SCH ×4 (06:03→21:38)
[2020-01-29] MEDS ORDERED: INSULIN (NOVOLOG) ASPART 100 UNITS/ML 10ML VIAL ONE (06:30)
[2020-01-29] MEDS: ENOXAPARIN NA (PORCINE) 40 MG/0.4 ML DISP.SYRIN SQ SCH (09:19)
[2020-01-29] MEDS: AMINO ACIDS/PROTEIN HYDROLYS 30 ML LIQUID.PKT PO SCH ×2 (09:19→16:48)
[2020-01-29] MEDS: TAMSULOSIN HCL 0.4 MG CAP PO SCH (09:19)
[2020-01-29] MEDS: CLOPIDOGREL BISULFATE 75 MG TABLET (FP) PO SCH (09:20)
[2020-01-29] MEDS: BACITRACIN 15 GM TUBE TOPICAL OINTMENT TP SCH ×2 (09:20→21:38)
[2020-01-29] MEDS: levETIRAcetam 250 MG TABLET PO SCH ×2 (09:20→21:38)
[2020-01-29] MEDS: LISINOPRIL 20 MG TABLET PO SCH (09:20)
[2020-01-29] MEDS: NYSTATIN POWDER 100,000 UNITS/GM - 15 GM TOPICAL POWDER TP SCH (09:20)
[2020-01-29] MEDS: CHOLECALCIFEROL (VIT D3) 1,000 UNIT (25 MCG) TABLET PO SCH (09:21)
[2020-01-29] MEDS: FINASTERIDE 5 MG TABLET (FP) PO SCH (09:21)
[2020-01-29] MEDS: MULTIVITAMINS (DAILY MVI) TABLET (FP) PO SCH (09:21)
[2020-01-29] MEDS: ATORVASTATIN CA 40 MG TABLET (FP) PO SCH (21:38)
[2020-01-30] MEDS ORDERED: DEXTROSE 5%-WATER - 50 ML IVPB ONE ×3 (02:00→17:00)
[2020-01-30] MEDS ORDERED: PIPERACILLIN/TAZOBACTAM 3.375 GM VIAL IVPB ONE ×3 (02:00→17:00)
[2020-01-30] MEDS: PIPERACILLIN/TAZOB 3.375 GM 3.375 GM in DEXTROSE 5%-WATER - 50 ML IVPB SCH ×3 (02:15→17:04)
[2020-01-30] MEDS ORDERED: amLODIPine BESYLATE 2.5 MG TABLET (FP) PO ONE (04:03)
[2020-01-30 08:06] LABS: EOS % 3.6 % (0-4.5); HEMATOCRIT 38.8 % (35.4-49); HEMOGLOBIN 12.8 GM/dL (11.7-16.9); LYMPH % 13.7 % (8-40); MCH 29.3 pg (25.7-33.7); MEAN CELL VOLUME 88.7 fl (80-96); MEAN PLT VOLUME 8.5 fl (7.5-11.1); MONO % 7.5 % (3.8-10.2); NEUT % 74.2 % (42.8-82.8); PLATELET COUNT 256 K/MM3 (134-434); RBC 4.37 M/mm3 (4.00-5.60); RDW 13.9 % (11.9-15.9)
[2020-01-30 08:23] LABS: POTASSIUM 3.9 mmol/L (3.5-5.1)
[2020-01-30 08:25] LABS: ALBUMIN 2.6 g/dl (3.4-5.0); BLOOD UREA NITROGEN 9.7 mg/dL (7-18)
[2020-01-30 08:28] LABS: CREATININE 0.8 mg/dL (0.55-1.3)
[2020-01-30 08:29] LABS: PHOSPHOROUS 2.9 mg/dL (2.5-4.9)
[2020-01-30 08:30] LABS: BILIRUBIN,TOTAL 0.6 mg/dL (0.2-1); TOT PROT 5.7 g/dl (6.4-8.2)
[2020-01-30] MEDS: BACITRACIN 15 GM TUBE TOPICAL OINTMENT TP SCH ×2 (09:33→21:22)
[2020-01-30] MEDS: CLOPIDOGREL BISULFATE 75 MG TABLET (FP) PO SCH (09:33)
[2020-01-30] MEDS: levETIRAcetam 250 MG TABLET PO SCH ×2 (09:33→21:22)
[2020-01-30] MEDS: AMINO ACIDS/PROTEIN HYDROLYS 30 ML LIQUID.PKT PO SCH ×2 (09:33→17:04)
[2020-01-30] MEDS: LISINOPRIL 20 MG TABLET PO SCH (09:33)
[2020-01-30] MEDS: TAMSULOSIN HCL 0.4 MG CAP PO SCH (09:33)
[2020-01-30] MEDS: MULTIVITAMINS (DAILY MVI) TABLET (FP) PO SCH (09:33)
[2020-01-30] MEDS: ENOXAPARIN NA (PORCINE) 40 MG/0.4 ML DISP.SYRIN SQ SCH (09:34)
[2020-01-30] MEDS: FINASTERIDE 5 MG TABLET (FP) PO SCH (09:34)
[2020-01-30] MEDS: CHOLECALCIFEROL (VIT D3) 1,000 UNIT (25 MCG) TABLET PO SCH (09:34)
[2020-01-30] MEDS: INSULIN SLIDING SCALE (NOVOLOG) 1 VIAL SQ SCH ×4 (11:15→21:21)
[2020-01-30] MEDS: NYSTATIN POWDER 100,000 UNITS/GM - 15 GM TOPICAL POWDER TP SCH (11:19)
[2020-01-30] MEDS: ATORVASTATIN CA 40 MG TABLET (FP) PO SCH (21:22)
[2020-01-31] MEDS ORDERED: PIPERACILLIN/TAZOBACTAM 3.375 GM VIAL IVPB ONE ×3 (01:10→16:22)
[2020-01-31] MEDS ORDERED: DEXTROSE 5%-WATER - 50 ML IVPB ONE ×3 (01:10→16:22)
[2020-01-31] MEDS: PIPERACILLIN/TAZOB 3.375 GM 3.375 GM in DEXTROSE 5%-WATER - 50 ML IVPB SCH ×3 (01:15→17:52)
[2020-01-31] MEDS: INSULIN SLIDING SCALE (NOVOLOG) 1 VIAL SQ SCH ×4 (06:45→22:11)
[2020-01-31 08:22] LABS: BASO % 0.8 % (0-2.0); EOS % 3.3 % (0-4.5); HEMATOCRIT 41.8 % (35.4-49); HEMOGLOBIN 13.5 GM/dL (11.7-16.9); LYMPH % 13.1 % (8-40); MCH 28.7 pg (25.7-33.7); MCHC 32.3 g/dl (32.0-35.9); MEAN CELL VOLUME 88.9 fl (80-96); MEAN PLT VOLUME 8.8 fl (7.5-11.1); NEUT % 74.8 % (42.8-82.8); PLATELET COUNT 263 K/MM3 (134-434); RDW 13.6 % (11.9-15.9)
[2020-01-31 08:38] LABS: POTASSIUM 3.9 mmol/L (3.5-5.1)
[2020-01-31 08:53] LABS: ALBUMIN 2.8 g/dl (3.4-5.0); CALCIUM 9.5 mg/dL (8.5-10.1)
[2020-01-31] MEDS ORDERED: PT OWN MED DRAWER 7, Y5N ONE (08:53)
[2020-01-31 08:54] LABS: BLOOD UREA NITROGEN 10.2 mg/dL (7-18)
[2020-01-31 08:57] LABS: CREATININE 0.7 mg/dL (0.55-1.3); PHOSPHOROUS 2.9 mg/dL (2.5-4.9)
[2020-01-31 08:58] LABS: BILIRUBIN,TOTAL 0.7 mg/dL (0.2-1)
[2020-01-31] MEDS: FINASTERIDE 5 MG TABLET (FP) PO SCH (09:00)
[2020-01-31] MEDS: MULTIVITAMINS (DAILY MVI) TABLET (FP) PO SCH (09:00)
[2020-01-31] MEDS: CLOPIDOGREL BISULFATE 75 MG TABLET (FP) PO SCH (09:00)
[2020-01-31] MEDS: levETIRAcetam 250 MG TABLET PO SCH ×2 (09:00→22:12)
[2020-01-31] MEDS: LISINOPRIL 20 MG TABLET PO SCH (09:00)
[2020-01-31] MEDS: TAMSULOSIN HCL 0.4 MG CAP PO SCH (09:00)
[2020-01-31] MEDS: AMINO ACIDS/PROTEIN HYDROLYS 30 ML LIQUID.PKT PO SCH ×2 (09:01→17:28)
[2020-01-31] MEDS: ENOXAPARIN NA (PORCINE) 40 MG/0.4 ML DISP.SYRIN SQ SCH (09:01)
[2020-01-31] MEDS: CHOLECALCIFEROL (VIT D3) 1,000 UNIT (25 MCG) TABLET PO SCH (09:02)
[2020-01-31] MEDS: NYSTATIN POWDER 100,000 UNITS/GM - 15 GM TOPICAL POWDER TP SCH (09:02)
[2020-01-31] MEDS: BACITRACIN 15 GM TUBE TOPICAL OINTMENT TP SCH ×2 (09:02→22:12)
[2020-01-31] MEDS: amLODIPine BESYLATE 5 MG TABLET (FP) PO SCH (11:24)
[2020-01-31] MEDS: SILVER SULFADIAZINE 1% TOP CREAM 50 GM JAR TP SCH (15:54)
[2020-01-31] MEDS: ATORVASTATIN CA 40 MG TABLET (FP) PO SCH (22:12)
[2020-02-01] MEDS ORDERED: PIPERACILLIN/TAZOBACTAM 3.375 GM VIAL IVPB ONE ×3 (00:47→18:32)
[2020-02-01] MEDS ORDERED: DEXTROSE 5%-WATER - 50 ML IVPB ONE ×3 (00:48→18:32)
[2020-02-01] MEDS: PIPERACILLIN/TAZOB 3.375 GM 3.375 GM in DEXTROSE 5%-WATER - 50 ML IVPB SCH ×3 (01:10→18:38)
[2020-02-01] MEDS: INSULIN SLIDING SCALE (NOVOLOG) 1 VIAL SQ SCH ×4 (06:36→21:06)
[2020-02-01 07:47] LABS: BASO % 1.1 % (0-2.0); EOS % 5.1 % (0-4.5); HEMATOCRIT 39.6 % (35.4-49); HEMOGLOBIN 12.9 GM/dL (11.7-16.9); LYMPH % 13.7 % (8-40); MCH 28.8 pg (25.7-33.7); MCHC 32.6 g/dl (32.0-35.9); MEAN CELL VOLUME 88.5 fl (80-96); MEAN PLT VOLUME 8.8 fl (7.5-11.1); MONO % 8.8 % (3.8-10.2); NEUT % 71.3 % (42.8-82.8); PLATELET COUNT 256 K/MM3 (134-434); RBC 4.48 M/mm3 (4.00-5.60); RDW 14.1 % (11.9-15.9)
[2020-02-01 08:20] LABS: ALBUMIN 2.7 g/dl (3.4-5.0); BILIRUBIN,TOTAL 0.9 mg/dL (0.2-1); BLOOD UREA NITROGEN 9.4 mg/dL (7-18); PHOSPHOROUS 2.5 mg/dL (2.5-4.9)
[2020-02-01 08:21] LABS: CREATININE 0.8 mg/dL (0.55-1.3); TOT PROT 5.8 g/dl (6.4-8.2)
[2020-02-01 08:22] LABS: MAGNESIUM 2.1 mg/dL (1.8-2.4)
[2020-02-01 08:23] LABS: CALCIUM 9.4 mg/dL (8.5-10.1)
[2020-02-01] MEDS: ENOXAPARIN NA (PORCINE) 40 MG/0.4 ML DISP.SYRIN SQ SCH (09:36)
[2020-02-01] MEDS: levETIRAcetam 250 MG TABLET PO SCH ×2 (09:36→21:05)
[2020-02-01] MEDS: TAMSULOSIN HCL 0.4 MG CAP PO SCH (09:36)
[2020-02-01] MEDS: AMINO ACIDS/PROTEIN HYDROLYS 30 ML LIQUID.PKT PO SCH ×2 (09:36→18:38)
[2020-02-01] MEDS: amLODIPine BESYLATE 5 MG TABLET (FP) PO SCH (09:37)
[2020-02-01] MEDS: CLOPIDOGREL BISULFATE 75 MG TABLET (FP) PO SCH (09:37)
[2020-02-01] MEDS: FINASTERIDE 5 MG TABLET (FP) PO SCH (09:37)
[2020-02-01] MEDS: MULTIVITAMINS (DAILY MVI) TABLET (FP) PO SCH (09:37)
[2020-02-01] MEDS: LISINOPRIL 20 MG TABLET PO SCH (09:37)
[2020-02-01] MEDS: BACITRACIN 15 GM TUBE TOPICAL OINTMENT TP SCH ×2 (09:37→21:05)
[2020-02-01] MEDS: NYSTATIN POWDER 100,000 UNITS/GM - 15 GM TOPICAL POWDER TP SCH (09:38)
[2020-02-01] MEDS: SILVER SULFADIAZINE 1% TOP CREAM 50 GM JAR TP SCH (09:39)
[2020-02-01] MEDS: CHOLECALCIFEROL (VIT D3) 1,000 UNIT (25 MCG) TABLET PO SCH (09:40)
[2020-02-01] MEDS ORDERED: INSULIN (NOVOLOG) ASPART 100 UNITS/ML 10ML VIAL ONE ×2 (11:58→20:56)
[2020-02-01] MEDS ORDERED: PT OWN MED DRAWER 7, Y5N ONE (20:57)
[2020-02-01] MEDS: ATORVASTATIN CA 40 MG TABLET (FP) PO SCH (21:05)
[2020-02-02] MEDS ORDERED: DEXTROSE 5%-WATER - 50 ML IVPB ONE ×2 (01:02→09:31)
[2020-02-02] MEDS ORDERED: PIPERACILLIN/TAZOBACTAM 3.375 GM VIAL IVPB ONE ×2 (01:02→09:31)
[2020-02-02] MEDS: PIPERACILLIN/TAZOB 3.375 GM 3.375 GM in DEXTROSE 5%-WATER - 50 ML IVPB SCH ×2 (01:42→09:44)
[2020-02-02] MEDS: INSULIN SLIDING SCALE (NOVOLOG) 1 VIAL SQ SCH ×2 (07:01→12:40)
[2020-02-02] MEDS: levETIRAcetam 250 MG TABLET PO SCH (09:40)
[2020-02-02] MEDS: CHOLECALCIFEROL (VIT D3) 1,000 UNIT (25 MCG) TABLET PO SCH (09:40)
[2020-02-02] MEDS: TAMSULOSIN HCL 0.4 MG CAP PO SCH (09:41)
[2020-02-02] MEDS: ENOXAPARIN NA (PORCINE) 40 MG/0.4 ML DISP.SYRIN SQ SCH (09:41)
[2020-02-02] MEDS: amLODIPine BESYLATE 5 MG TABLET (FP) PO SCH (09:41)
[2020-02-02] MEDS: CLOPIDOGREL BISULFATE 75 MG TABLET (FP) PO SCH (09:41)
[2020-02-02] MEDS: FINASTERIDE 5 MG TABLET (FP) PO SCH (09:41)
[2020-02-02] MEDS: AMINO ACIDS/PROTEIN HYDROLYS 30 ML LIQUID.PKT PO SCH (09:42)
[2020-02-02] MEDS: MULTIVITAMINS (DAILY MVI) TABLET (FP) PO SCH (09:43)
[2020-02-02] MEDS: LISINOPRIL 20 MG TABLET PO SCH (09:43)
[2020-02-02] MEDS: BACITRACIN 15 GM TUBE TOPICAL OINTMENT TP SCH (09:44)
[2020-02-02] MEDS: NYSTATIN POWDER 100,000 UNITS/GM - 15 GM TOPICAL POWDER TP SCH (09:54)
[2020-02-02] MEDS: SILVER SULFADIAZINE 1% TOP CREAM 50 GM JAR TP SCH (09:55)
[2020-02-02 11:34] VITALS: BP 123/52; PULSE 68; TEMP 98
== END 2020-02-02 13:03 | DRG 872 ==
LOC: JER 08:44 → JERBED 16:14 → J6S 23:38
PROVIDERS: ATTEND Internal Medicine
DX: A41.9 Sepsis, unspecified organism (principal); L03.115 Cellulitis of right lower limb; L03.116 Cellulitis of left lower limb; M62.82 Rhabdomyolysis; E11.9 Type 2 diabetes mellitus without complications; I10 Essential (primary) hypertension; E78.5 Hyperlipidemia, unspecified; G40.909 Epilepsy, unspecified, not intractable, without status epilepticus; E66.9 Obesity, unspecified; Z68.38 Body mass index [BMI] 38.0-38.9, adult; I25.10 Atherosclerotic heart disease of native coronary artery without angina pectoris; L89.222 Pressure ulcer of left hip, stage 2; Z95.5 Presence of coronary angioplasty implant and graft; N40.0 Benign prostatic hyperplasia without lower urinary tract symptoms
CPT/HCPCS: 36415; 70450-TC; 71045-TC-FY; 72125-TC; 73523-TC-FY; 74177-TC; 80048; 80053; 80177; 81003; 82550; 82553; 82803; 82962; 83605; 83735; 84100; 84484; 85025; 85027; 85610; 87040; 87086; 87186; 87804; 90715; 93005; 93010; 93306-TC; 94010; 97116-GP; 97162-GP; 99291; C9803; J0131; Q9967; U0003